=== PATIENT | female | born 2000 | race Caucasian/White ===

== ENCOUNTER 2019-12-08 15:55 | Emergency (ER) | payer OTHER, SELFPAY ==
[2019-12-08 16:41] VITALS: BP 119/80; PULSE 89; RESP 18; TEMP 36.6; O2SAT 98; BMI 27.0
--- NOTE | 2019-12-08 17:01 | XR_ITS ---
WS: [id number] XR cervical spine 3V* [id number] REASON FOR EXAM: neck pain FINDINGS: 3 views of the cervical spine shows normal appearance of the odontoid process. The disc spaces and vertebral bodies are all normal. The cervicothoracic junction was normal. No soft tissue abnormalities. XR/XR cervical spine 3V* [id number] IMPRESSION: Negative cervical spine series.
--- NOTE | 2019-12-08 17:01 | XR_ITS ---
WS: [id number] XR lumbar spine 2-3V* [id number] REASON FOR EXAM: pain FINDINGS: Lumbar spine 3 views. The disc spaces and vertebral bodies are all normal. No fractures or dislocations are seen. The lamina, pedicles, transverse processes, spinous processes are all normal. XR/XR lumbar spine 2-3V* [id number] IMPRESSION: Negative lumbar spine series.
--- NOTE | 2019-12-08 17:01 | XR_ITS ---
WS: [id number] XR thoracic spine 2V [id number] REASON FOR EXAM: pain FINDINGS: Thoracic spine was evaluated with 3 views. The cervicothoracic junction was normal. The disc spaces and vertebral bodies are normal. The lamina, pedicles, spinous processes are all normal. XR/XR thoracic spine 2V [id number] IMPRESSION: Negative thoracic spine series.
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
[2019-12-08 17:21] LABS: Basophils % 0.4 %; Eosinophils # 0.2 10^3/uL (0.0-0.8); Eosinophils % 1.8 %; Hematocrit 42.8 % (37.0-47.0); Hemoglobin 14.2 g/dL (11.5-15.3); Lymphocytes # 4.4 10^3/uL (1.5-6.5); Lymphocytes % 39.7 %; Mean Corpuscular HGB Conc 33.2 g/dL (30.0-36.0); Mean Corpuscular Hemoglobin 29.2 pg (28.0-34.0); Mean Corpuscular Volume 87.9 fL (81-99); Mean Platelet Volume 10.9 fL (7.4-10.4); Monocytes # 0.6 10^3/uL (0.2-0.9); Monocytes % 5.2 %; Neutrophils # 5.8 10^3/uL (1.8-8.0); Neutrophils % 52.7 %; Nucleated Red Blood Cells % 0 %; Platelet Count 314 10^3/cmm (130-400); Red Blood Count 4.87 10^6/uL (4.1-5.3); Red Cell Distribution Width 11.9 % (12.1-15.1); White Blood Count 11.1 10^3/uL (4.5-13.0)
[2019-12-08 17:34] LABS: Anion Gap 18.3 (5-19); Blood Urea Nitrogen 12 mg/dL (6-20); Calcium 9.4 mg/dL (8.5-10.5); Carbon Dioxide 23 mmol/L (22-29); Chloride 98 mmol/L (98-107); Glomerular Filtration Rate 128.8 mL/min (90-130); Glucose 84 mg/dL (65-115); Osmolality Calculated 277 mOsm/kg (285-295); Potassium 3.3 mmol/L (3.5-5.1); Sodium 136 mmol/L (136-145)
[2019-12-08 17:56] VITALS: BP 144/54; PULSE 88; RESP 17; O2SAT 98
[2019-12-08 18:24] VITALS: BP 126/68; PULSE 87; RESP 18; O2SAT 98
[2019-12-08 18:28] LABS: Add Urine Microscopic? NO
[2019-12-08 18:45] LABS: Bilirubin Urine Neg (NEGATIVE); Blood Urine Neg (Negative); Glucose Urine UA Norm (Normal); HCG Qualitative Urine. Negative (Negative); Ketones Urine 3+ (Negative); Leukocyte Esterase Urine Negative (Negative); Nitrate Urine Negative (Negative); Protein Urine Neg (Negative); Specific Gravity, Urine 1.025 (1.005-1.030); Urine Appearance Hazy (CLEAR); Urine Color Yellow (Yellow); Urobilinogen Urine 1 mg/dL (Negative); pH Urine 5 (5-7)
== END 2019-12-08 18:29 | disposition home or self-care (01) ==
PROVIDERS: Emergency Provider Family Medicine
DX: S09.8XXA Other specified injuries of head, initial encounter (principal); V86.65XA Passenger of 3- or 4- wheeled all-terrain vehicle (ATV) injured in nontraffic accident, initial encounter; M54.2 Cervicalgia; F17.210 Nicotine dependence, cigarettes, uncomplicated
CPT/HCPCS: 12345; 36415; 70450; 72040; 72070; 72100; 80048; 81003; 81025; 85025; 99282; 99283; A9270

== ENCOUNTER 2020-04-20 20:28 | Emergency (ER) | payer OTHER, SELFPAY ==
[2020-04-20 20:37] VITALS: BP 115/77; PULSE 85; RESP 16; TEMP 36.3; O2SAT 98; BMI 25.0
[2020-04-20 21:30] LABS: HCG Qualitative Urine. Negative (Negative)
[2020-04-20 21:38] LABS: Add Urine Microscopic? YES; Amorphous Sediment Urine 2+ /hpf; Bilirubin Urine Neg (Negative); Blood Urine Trace (Negative); Glucose Urine UA Norm (Normal); Ketones Urine 3+ (Negative); Leukocyte Esterase Urine Negative (Negative); Nitrate Urine Negative (Negative); Protein Urine Neg (Negative); RBC Urine RARE /hpf (0-2); Squamous Epithelial Cell Urine RARE /hpf (0-5); Urine Appearance Cloudy (CLEAR); Urine Color Yellow (Yellow); Urobilinogen Urine Norm (Negative); WBC Urine RARE /hpf (0-5); pH Urine 5 (5-7)
[2020-04-20 21:39] LABS: Bacteria Urine 2+ /hpf
--- NOTE | 2020-04-20 21:54 | CTR_ITS ---
PROCEDURE INFORMATION: Exam: CT Abdomen And Pelvis With Contrast Exam date and time: 04/20/2020 10:11 PM Age: 19 years old Clinical indication: Nausea and vomiting; Abdominal pain; Additional info: Abd pain TECHNIQUE: Imaging protocol: Computed tomography of the abdomen and pelvis with intravenous contrast. Radiation optimization: All CT scans at this facility use at least one of these dose optimization techniques: automated exposure control; mA and/or kV adjustment per patient size (includes targeted exams where dose is matched to clinical indication); or iterative reconstruction. Contrast material: OMNI 300; Contrast volume: 75 ml; Contrast route: INTRAVENOUS (IV); COMPARISON: US transvaginal [id number] 04/13/2019 10:40 AM RADIATION DOSE METRICS: Total DLP (mGy-cm): 424.44 FINDINGS: Liver: Normal. No mass. Gallbladder and bile ducts: Normal. No calcified stones. No ductal dilation. Pancreas: Normal. No ductal dilation. Spleen: Normal. No splenomegaly. Adrenals: Normal. No mass. Kidneys and ureters: Normal. No hydronephrosis. Stomach and bowel: There is some subtle haziness seen along the serosal margin of the ascending and transverse colon, findings that could represent mild inflammatory changes and colitis. Appendix: The appendix is visualized and is normal in configuration. Intraperitoneal space: Unremarkable. No free air. No significant fluid collection. Vasculature: Unremarkable. No abdominal aortic aneurysm. Lymph nodes: Unremarkable. No enlarged lymph nodes. Bladder: Unremarkable as visualized. Reproductive: Unremarkable as visualized. Bones/joints: Unremarkable. No acute fracture. Soft tissues: Unremarkable. CT/CT abdomen pelvis w con* [id number] IMPRESSION: Mild haziness seen along the ascending and transverse colon could represent mild colitis. Radiation Dose CTDIVOL = (mGy): DLP = 424.44 (mGy-cm)
--- NOTE | 2020-04-20 21:57 | ED_ITS ---
HPI - Abdominal Pain General: Chief Complaint: Abdominal Pain Stated Complaint: severe abd pain Time Seen by Provider: 04/20/20 21:53 Source: patient Mode of arrival: ambulatory Limitations: no limitations History of Present Illness: HPI narrative: 19-year-old female states she had abdominal pain since last night. States got much worse today. Is mainly in her right upper and right lower quadrant. Pain is sharp and rates it a 7 out of 10. She is had multiple episode of vomiting. Denies any fevers. MD elicited complaint: abdominal pain Pertinent past history: none Onset (ago): hour(s) Pain Consistency: constant Location: RUQ and RLQ Severity: moderate Quality: stabbing Migration to: no migration Exacerbating factors: nothing Relieving factors: nothing Associated Symptoms: Reports vomiting; Denies chills, diarrhea, dysuria, fever(s) and nausea Review of Systems Const: Denies: fever(s), chills, body aches or change in appetite Eyes: Denies: blurry vision or eye discomfort ENMT: Denies: throat pain or dental pain Card: Denies: chest pain Resp: Denies: dyspnea GI: Reports: abdominal pain and vomiting; Denies: nausea or diarrhea : Denies: dysuria Musc: Denies: neck pain or back pain Skin/Breast: Denies: rash Neuro: Denies: headache(s) Psych: Denies: depression Nate/Lymph: Denies: easy bruising All/Imm: Denies: urticaria PFSH ED PFSH: Surgical History (Updated 12/08/19 @ 17:23 by Hipolito Pabon DO) H/O neck surgery History of rhinoplasty Social History Smoking and tobacco status: current every day smoker Physical Exam Const: COMMON NORMALS: no acute distress, patient oriented x3 and healthy appearing HENMT: COMMON NORMALS: normocephalic and atraumatic HEAD & SCALP: normocephalic and atraumatic Eye: COMMON NORMALS: Equal, round and reactive pupils present and EOMs intact bilaterally PUPIL: Yes Equal, round and reactive pupils present Neck/C-Spine: COMMON NORMALS: full ROM and supple Chest: COMMONS NORMALS: normal inspection of the chest and normal palpation of entire chest wall Resp: COMMON NORMALS: normal respiratory effort, No retractions, No use of accessory muscles and clear to auscultation bilaterally AUSCULTATION: clear to auscultation bilaterally Cardio: COMMON NORMALS: regular rate, regular rhythm and No murmurs present (Cardio) RATE: regular rate RHYTHM: regular rhythm GI: COMMON NORMALS: Normal to inspection, nondistended, normoactive bowel sounds present, Soft to palpation and no masses PALPATION: Yes Soft to palpation and Yes Tenderness to palpation present (GI) Details: RLQ Extremity: COMMON NORMALS: normal to inspection and full ROM Neuro: COMMON NORMALS: patient oriented x3, moves all extremities and no focal motor deficits Psych: COMMON NORMALS: mental status grossly normal, Normal thought process pr esent and cooperative THOUGHT PROCESS: Normal thought process present Skin: COMMON NORMALS: no rashes or lesions noted and no wounds GENERAL SKIN EXAM: no rashes or lesions noted Course Vital Signs: Vital signs: Vital Signs Temperature 97.3 F L 04/20/20 20:37 Pulse Rate 86 04/20/20 23:49 Respiratory Rate 16 04/20/20 23:49 Blood Pressure 104/71 04/20/20 23:49 Pulse Oximetry 98 04/20/20 23:49 MDM - Abdominal Pain MDM Narrative: Medical decision making narrative: Patient presents here with abdominal pain likely from a colitis. We will start her on nausea meds and Augmentin. Her pain is improved here and she feels much improved. She is able to tolerate p.o. She is stable for discharge and return if worsening. Lab Data: Labs: Lab Results 04/20/20 04/20/20 04/20/20 Range/Units 20:50 20:50 21:50 WBC 19.9 H (4.5-13.0) 10^3/ uL RBC 4.82 (4.1-5.3) 10^6/u L Hgb 14.3 (11.5-15.3) g/dL Hct 43.9 (37.0-47.0) % MCV 91.1 (81-99) fL MCH 29.7 (28.0-34.0) pg MCHC 32.6 (30.0-36.0) g/dL RDW 11.9 L (12.1-15.1) % Plt Count 347 (130-400) 10^3/c mm MPV 10.8 H (7.4-10.4) fL Neut % (Auto) 87.5 % Lymph % (Auto) 6.3 % [place] % (Auto) 5.0 % Eos % (Auto) 0.4 % Baso % (Auto) 0.4 % Neut # (Auto) 17.44 H (1.8-8.0) 10^3/u L Lymph # (Auto) 1.3 L (1.5-6.5) 10^3/u L [place] # (Auto) 1.0 H (0.2-0.9) 10^3/u L Eos # (Auto) 0.1 (0.0-0.8) 10^3/u L Baso # (Auto) 0.1 (0.0-0.1) 10^3/u L Nucleated RBC % (a uto) 0 % Nucleated RBCs # 0.0 /100WBC Sodium (136-145) mmol/L Potassium (3.5-5.1) mmol/L Chloride (98-107) mmol/L Carbon Dioxide (22-29) mmol/L Anion Gap (5-19) BUN (6-20) mg/dL Creatinine (0.5-0.9) mg/dL GFR Calculation (90-130) mL/min Glucose (65-115) mg/dL Calculated Osmolal ity (285-295) mOsm/k g Calcium (8.5-10.5) mg/dL Total Bilirubin (0.15-1.2) mg/dL AST (0-32) U/L ALT (0-33) U/L Alkaline Phosphata se (35-105) IU/L Total Protein (6.6-8.7) g/dL Albumin (3.5-5.2) g/dL Globulin (1.3-4.6) g/dL Lipase (13-60) U/L HCG, Qual Negative (Negative) Urine Color Yellow (Yellow) Urine Appearance Cloudy (CLEAR) Urine pH 5 (5-7) Ur Specific Gravit y 1.030 (1.005-1.030) Urine Protein Neg (Negative) Urine Glucose (UA) Norm (Normal) Urine Ketones 3+ H (Negative) Urine Blood Trace H (Negative) Urine Nitrate Negative (Negative) Urine Bilirubin Neg (Negative) Urine Urobilinogen Norm (Negative) mg/dL Ur Leukocyte Di ase Negative (Negative) Urine RBC Rare (0-2) /hpf Urine WBC Rare (0-5) /hpf Ur Squamous Epith Cells Rare (0-5) /hpf Ur Renal Epithelia l Cell Knitting Machine Fixer Head Amorphous Sediment 2+ /hpf Urine Bacteria 2+ H (NONE) /hpf 04/20/20 Range/Units 21:50 WBC (4.5-13.0) 10^3/ uL RBC (4.1-5.3) 10^6/u L Hgb (11.5-15.3) g/dL Hct (37.0-47.0) % MCV (81-99) fL MCH (28.0-34.0) pg MCHC (30.0-36.0) g/dL RDW (12.1-15.1) % Plt Count (130-400) 10^3/c mm MPV (7.4-10.4) fL Neut % (Auto) % Lymph % (Auto) % [place] % (Auto) % Eos % (Auto) % Baso % (Auto) % Neut # (Auto) (1.8-8.0) 10^3/u L Lymph # (Auto) (1.5-6.5) 10^3/u L [place] # (Auto) (0.2-0.9) 10^3/u L Eos # (Auto) (0.0-0.8) 10^3/u L Baso # (Auto) (0.0-0.1) 10^3/u L Nucleated RBC % (a uto) % Nucleated RBCs # /100WBC Sodium 134 L (136-145) mmol/L Potassium 4.4 (3.5-5.1) mmol/L Chloride 97 L (98-107) mmol/L Carbon Dioxide 25 (22-29) mmol/L Anion Gap 16.4 (5-19) BUN 10 (6-20) mg/dL Creatinine 0.5 (0.5-0.9) mg/dL GFR Calculation 157.3 H (90-130) mL/min Glucose 143 H (65-115) mg/dL Calculated Osmolal ity 280 L (285-295) mOsm/k g Calcium 9.3 (8.5-10.5) mg/dL Total Bilirubin 0.3 (0.15-1.2) mg/dL AST 23 (0-32) U/L ALT 35 H (0-33) U/L Alkaline Phosphata se 96 (35-105) IU/L Total Protein 8.2 (6.6-8.7) g/dL Albumin 4.9 (3.5-5.2) g/dL Globulin 3.3 (1.3-4.6) g/dL Lipase 19 (13-60) U/L HCG, Qual (Negative) Urine Color (Yellow) Urine Appearance (CLEAR) Urine pH (5-7) Ur Specific Gravit y (1.005-1.030) Urine Protein (Negative) Urine Glucose (UA) (Normal) Urine Ketones (Negative) Urine Blood (Negative) Urine Nitrate (Negative) Urine Bilirubin (Negative) Urine Urobilinogen (Negative) mg/dL Ur Leukocyte Di ase (Negative) Urine RBC (0-2) /hpf Urine WBC (0-5) /hpf Ur Squamous Epith Cells (0-5) /hpf Ur Renal Epithelia l Cell Amorphous Sediment /hpf Urine Bacteria (NONE) /hpf Imaging Data ^: CT Abd/Pel: Attestation: I personally reviewed and interpreted this imaging study as follows: Radiologist's impression: [place] [address] CT Scan Report Signed Patient: Trice Ball Unit #: [id number] : 2000 Age/Sex: 19 / F ADM Date: 04/20/20 Loc: ER Room/Bed: Attending Dr: Ordering Provider/Ordering MD: Drake Araya MD Date of Service: 04/20/20 Procedure(s): CT abdomen pelvis w con* [id number] Accession Number(s): [id number] Report Number: [id number] PROCEDURE INFORMATION: Exam: CT Abdomen And Pelvis With Contrast Exam date and time: 04/20/2020 10:11 PM Age: 19 years old Clinical indication: Nausea and vomiting; Abdominal pain; Additional info: Abd pain TECHNIQUE: Imaging protocol: Computed tomography of the abdomen and pelvis with intravenous contrast. Radiation optimization: All CT scans at this facility use at least one of these dose optimization techniques: automated exposure control; mA and/or kV adjustment per patient size (includes targeted exams where dose is matched to clinical indication); or iterative reconstruction. Contrast material: OMNI 300; Contrast volume: 75 ml; Contrast route: INTRAVENOUS (IV); COMPARISON: US transvaginal [id number] 04/13/2019 10:40 AM RADIATION DOSE METRICS: Total DLP (mGy-cm): 424.44 FINDINGS: Liver: Normal. No mass. Gallbladder and bile ducts: Normal. No calcified stones. No ductal dilation. Pancreas: Normal. No ductal dilation. Spleen: Normal. No splenomegaly. Adrenals: Normal. No mass. Kidneys and ureters: Normal. No hydronephrosis. Stomach and bowel: There is some subtle haziness seen along the serosal margin of the ascending and transverse colon, findings that could represent mild inflammatory changes and colitis. Appendix: The appendix is visualized and is normal in configuration. Intraperitoneal space: Unremarkable. No free air. No significant fluid collection. Vasculature: Unremarkable. No abdominal aortic aneurysm. Lymph nodes: Unremarkable. No enlarged lymph nodes. Bladder: Unremarkable as visualized. Reproductive: Unremarkable as visualized. Bones/joints: Unremarkable. No acute fracture. Soft tissues: Unremarkable. CT/CT abdomen pelvis w con* [id number] IMPRESSION: Mild haziness seen along the ascending and transverse colon could represent mild colitis. Discharge Plan Discharge Patient Disposition: Home Clinical Impression: Colitis Condition: Stable Prescriptions: New ondansetron 4 mg tablet,disintegrating 4 mg PO Q6H PRN (Reason: nausea and vomiting) Qty: 14 RF: 0 Augmentin 875-125 mg tablet 1 tab PO BID Qty: 14 RF: 0 No Action diclofenac sodium 75 mg tablet,delayed release (DR/EC) 75 mg PO Q12H PRN (Reason: pain) Qty: 20 RF: 0 Discharge Orders: Discharge Order (Routine); Ordered 04/20/20 Ordered By: Drake Araya Discharge Diet: Advance as tolerated Discharge Activity: Resume usual activity Patient Instructions: Infectious Colitis (ED) Discharge Date/Time: 04/20/20 23:51 Coding Level of Care Code ED Medical Appointment Scheduler for Chg Fwd Exam Comprehensive
[2020-04-20 22:09] LABS: Basophils # 0.1 10^3/uL (0.0-0.1); Basophils % 0.4 %; Eosinophils # 0.1 10^3/uL (0.0-0.8); Eosinophils % 0.4 %; Hematocrit 43.9 % (37.0-47.0); Hemoglobin 14.3 g/dL (11.5-15.3); Lymphocytes # 1.3 10^3/uL (1.5-6.5); Lymphocytes % 6.3 %; Mean Corpuscular HGB Conc 32.6 g/dL (30.0-36.0); Mean Corpuscular Hemoglobin 29.7 pg (28.0-34.0); Mean Corpuscular Volume 91.1 fL (81-99); Mean Platelet Volume 10.8 fL (7.4-10.4); Neutrophils # 17.44 10^3/uL (1.8-8.0); Neutrophils % 87.5 %; Nucleated Red Blood Cells % 0 %; Platelet Count 347 10^3/cmm (130-400); Red Blood Count 4.82 10^6/uL (4.1-5.3); Red Cell Distribution Width 11.9 % (12.1-15.1); White Blood Count 19.9 10^3/uL (4.5-13.0)
--- NOTE | 2020-04-20 22:11 | US_ITS ---
WS: [id number] RIGHT UPPER QUADRANT ULTRASOUND HISTORY: pain COMPARISON: None available. Liver: 11.8 cm in length. Normal size liver. No bile duct dilatation or mass. Gallbladder: Normally distended gallbladder with no stones or wall thickening. CBD: 0.3 cm Pancreas: Normal size and echogenicity. Right kidney: 9.4 cm in length. Normal size and echogenicity. No hydronephrosis or mass. Aorta and IVC: Unremarkable abdominal aorta and IVC. No ascites. US/US gall bladder [id number] IMPRESSION: Normal RIGHT upper quadrant ultrasound.
[2020-04-20 22:13] VITALS: O2SAT 98
[2020-04-20 22:20] LABS: Alanine Aminotransferase 35 U/L (0-33); Albumin Level 4.9 g/dL (3.5-5.2); Alkaline Phosphatase 96 IU/L (35-105); Anion Gap 16.4 (5-19); Aspartate Amino Transferase 23 U/L (0-32); Blood Urea Nitrogen 10 mg/dL (6-20); Calcium 9.3 mg/dL (8.5-10.5); Carbon Dioxide 25 mmol/L (22-29); Chloride 97 mmol/L (98-107); Globulin 3.3 g/dL (1.3-4.6); Glomerular Filtration Rate 157.3 mL/min (90-130); Glucose 143 mg/dL (65-115); Lipase 19 U/L (13-60); Osmolality Calculated 280 mOsm/kg (285-295); Potassium 4.4 mmol/L (3.5-5.1); Sodium 134 mmol/L (136-145); Total Bilirubin 0.3 mg/dL (0.15-1.2); Total Protein 8.2 g/dL (6.6-8.7)
[2020-04-20] MEDS: sodium chloride 0.9% 1,000 ML 999 ML IV ×2 (22:27→23:39)
[2020-04-20] MEDS: ondansetron 2 mg/ML SDV 2 mL 4 MG IVP (22:28)
[2020-04-20 22:29] VITALS: BP 110/64; PULSE 82; RESP 18; O2SAT 98
[2020-04-20] MEDS: morphine 4 mg/mL SDV 1 mL IVP ×2 (22:29→23:38)
[2020-04-20] MEDS: iohexol 300 mg/mL 100 mL Btl IV (22:40)
[2020-04-20] MEDS: acetaminophen 325 mg Tablet 650 MG PO (23:30)
[2020-04-20 23:38] VITALS: RESP 18; O2SAT 98
[2020-04-20 23:49] VITALS: BP 104/71; PULSE 86; RESP 16; O2SAT 98
== END 2020-04-20 23:51 | disposition home or self-care (01) ==
PROVIDERS: Emergency Provider Emergency Medicine
DX: K52.9 Noninfective gastroenteritis and colitis, unspecified (principal); F17.210 Nicotine dependence, cigarettes, uncomplicated
CPT/HCPCS: 12345; 36415; 74177; 76705; 80053; 81001; 81025; 83690; 85025; 96375; 99283; J2270; J2405; J7030; Q9967

== ENCOUNTER 2020-09-03 18:55 | Emergency (ER) | payer OTHER, SELFPAY ==
[2020-09-03 20:04] VITALS: BP 130/91; PULSE 64; RESP 12; TEMP 36.8; O2SAT 98; BMI 27.1
--- NOTE | 2020-09-03 22:06 | W.ED.ABDPA2 ---
HPI - Abdominal Pain General: Chief Complaint: Abdominal Pain Stated Complaint: possible colon infection Time Seen by Provider: 09/03/20 21:52 History of Present Illness: HPI narrative: Patient was doing fine until this morning when she started having some nausea and vomiting. Slight abdominal pain. She said is consistent with colitis attack that she had 2 months ago. Denies any other problem MD elicited complaint: abdominal pain Pertinent past history: other (Colitis 2 months ago) Onset (ago): hour(s) Pain Consistency: intermittent Location: RLQ and LLQ Severity: mild Quality: cramping Radiation: none Associated Symptoms: Reports nausea and vomiting; Denies chills and fever(s) Review of Systems Const: Denies: fever(s), chills or body aches Eyes: Denies: change in vision or blurry vision ENMT: Denies: throat pain or nasal congestion Card: Denies: chest pain or dyspnea on exertion Resp: Denies: dyspnea, productive cough or non-productive cough GI: Reports: nausea and vomiting Musc: Denies: extremity pain Skin/Breast: Denies: rash Neuro: Denies: headache(s) Psych: Denies: anxiety or depression Nate/Lymph: Denies: easy bruising PFSH ED PFSH: Surgical History (Updated 12/08/19 @ 17:23 by Hipolito Pabon DO) H/O neck surgery History of rhinoplasty Social History Smoking and tobacco status: current every day smoker Physical Exam Const: COMMON NORMALS: no acute distress, average body habitus and patient oriented x3 HENMT: COMMON NORMALS: normocephalic HEAD & SCALP: normal to inspection and normocephalic FACE & SINUS: normal facial exam Eye: COMMON NORMALS: conjunctivae normal GENERAL EYE: appearance normal, both eyes and all related structures CONJUNCTIVA: Yes conjunctivae normal Neck/C-Spine: COMMON NORMALS: no JVD Chest: COMMONS NORMALS: normal inspection of the chest Resp: COMMON NORMALS: normal respiratory effort and clear to auscultation bilaterally AUSCULTATION: clear to auscultation bilaterally Cardio: COMMON NORMALS: no JVD, regular rate and regular rhythm RATE: regular rate RHYTHM: regular rhythm GI: COMMON NORMALS: Normal to inspection, nondistended, normoactive bowel sounds present PALPATION: Yes Tenderness to palpation present (GI) Details: LLQ and RLQ Extremity: COMMON NORMALS: normal to inspection and full ROM Neuro: COMMON NORMALS: patient oriented x3 Course Vital Signs: Vital signs: Vital Signs Temperature 98.2 F 09/03/20 20:04 Pulse Rate 78 09/03/20 23:34 Respiratory Rate 16 09/03/20 23:34 Blood Pressure 107/87 09/03/20 23:34 Pulse Oximetry 99 09/03/20 23:34 MDM - Abdominal Pain MDM Narrative: Medical decision making narrative: Patient with a recent 2-month history post colitis with similar symptoms today. Responded well to fluids antibiotics will follow up with her family medical provider if no significant improvement Differential Diagnosis: Differential diagnosis abdominal pain: Likely abdominal pain, constipation, diverticulitis and gastroenteritis Lab Data: Labs: Lab Results 09/03/20 09/03/20 09/03/20 Range/Units 20:55 22:05 22:05 WBC 16.0 H (4.5-13.0) 10^3/ uL RBC 4.89 (4.1-5.3) 10^6/u L Hgb 14.4 (11.5-15.3) g/dL Hct 44.3 (37.0-47.0) % MCV 90.6 (81-99) fL MCH 29.4 (28.0-34.0) pg MCHC 32.5 (30.0-36.0) g/dL RDW 12.0 L (12.1-15.1) % Plt Count 350 (130-400) 10^3/c mm MPV 10.9 H (7.4-10.4) fL Neut % (Auto) 74.5 % Lymph % (Auto) 20.0 % [place] % (Auto) 3.2 % Eos % (Auto) 1.6 % Baso % (Auto) 0.3 % Neut # (Auto) 11.92 H (1.8-8.0) 10^3/u L Lymph # (Auto) 3.2 (1.5-6.5) 10^3/u L [place] # (Auto) 0.5 (0.2-0.9) 10^3/u L Eos # (Auto) 0.3 (0.0-0.8) 10^3/u L Baso # (Auto) 0.1 (0.0-0.1) 10^3/u L Nucleated RBC % (a uto) 0 % Nucleated RBCs # 0.0 /100WBC Sodium 138 (136-145) mmol/L Potassium 3.8 (3.5-5.1) mmol/L Chloride 103 (98-107) mmol/L Carbon Dioxide 25 (22-29) mmol/L Anion Gap 13.8 (5-19) BUN 11 (6-20) mg/dL Creatinine 0.7 (0.5-0.9) mg/dL GFR Calculation 106.7 (90-130) mL/min Glucose 95 (65-115) mg/dL Calculated Osmolal ity 285 (285-295) mOsm/k g Calcium 9.0 (8.5-10.5) mg/dL Total Bilirubin 0.3 (0.15-1.2) mg/dL AST 19 (0-32) U/L ALT 22 (0-33) U/L Alkaline Phosphata se 90 (35-105) IU/L C-Reactive Protein 2.2 (0.0-4.9) mg/L Total Protein 7.5 (6.6-8.7) g/dL Albumin 4.5 (3.5-5.2) g/dL Globulin 3.0 (1.3-4.6) g/dL Lipase 13 (13-60) U/L HCG, Qual (Negative) Urine Color Yellow (Yellow) Urine Appearance Clear (CLEAR) Urine pH 5 (5-7) Ur Specific Gravit y 1.015 (1.005-1.030) Urine Protein Neg (Negative) Urine Glucose (UA) Norm (Normal) Urine Ketones Negative (Negative) Urine Blood 3+ H (Negative) Urine Nitrate Negative (Negative) Urine Bilirubin Neg (Negative) Urine Urobilinogen Norm (Negative) mg/dL Ur Leukocyte Di ase Negative (Negative) Urine RBC 5-10 H (0-2) /hpf Urine WBC 0-4 H (0-5) /hpf Ur Squamous Epith Cells 15-25 H (0-5) /hpf Amorphous Sediment Not Reportable Urine Bacteria Trace (NONE) /hpf 09/03/20 Range/Units 22:05 WBC (4.5-13.0) 10^3/ uL RBC (4.1-5.3) 10^6/u L Hgb (11.5-15.3) g/dL Hct (37.0-47.0) % MCV (81-99) fL MCH (28.0-34.0) pg MCHC (30.0-36.0) g/dL RDW (12.1-15.1) % Plt Count (130-400) 10^3/c mm MPV (7.4-10.4) fL Neut % (Auto) % Lymph % (Auto) % [place] % (Auto) % Eos % (Auto) % Baso % (Auto) % Neut # (Auto) (1.8-8.0) 10^3/u L Lymph # (Auto) (1.5-6.5) 10^3/u L [place] # (Auto) (0.2-0.9) 10^3/u L Eos # (Auto) (0.0-0.8) 10^3/u L Baso # (Auto) (0.0-0.1) 10^3/u L Nucleated RBC % (a uto) % Nucleated RBCs # /100WBC Sodium (136-145) mmol/L Potassium (3.5-5.1) mmol/L Chloride (98-107) mmol/L Carbon Dioxide (22-29) mmol/L Anion Gap (5-19) BUN (6-20) mg/dL Creatinine (0.5-0.9) mg/dL GFR Calculation (90-130) mL/min Glucose (65-115) mg/dL Calculated Osmolal ity (285-295) mOsm/k g Calcium (8.5-10.5) mg/dL Total Bilirubin (0.15-1.2) mg/dL AST (0-32) U/L ALT (0-33) U/L Alkaline Phosphata se (35-105) IU/L C-Reactive Protein (0.0-4.9) mg/L Total Protein (6.6-8.7) g/dL Albumin (3.5-5.2) g/dL Globulin (1.3-4.6) g/dL Lipase (13-60) U/L HCG, Qual Negative (Negative) Urine Color (Yellow) Urine Appearance (CLEAR) Urine pH (5-7) Ur Specific Gravit y (1.005-1.030) Urine Protein (Negative) Urine Glucose (UA) (Normal) Urine Ketones (Negative) Urine Blood (Negative) Urine Nitrate (Negative) Urine Bilirubin (Negative) Urine Urobilinogen (Negative) mg/dL Ur Leukocyte Di ase (Negative) Urine RBC (0-2) /hpf Urine WBC (0-5) /hpf Ur Squamous Epith Cells (0-5) /hpf Amorphous Sediment Urine Bacteria (NONE) /hpf Discharge Plan Discharge Patient Disposition: Home Clinical Impression: Colitis Condition: Stable Prescriptions: New Flagyl 500 mg tablet 500 mg PO BID 7 Days Qty: 14 RF: 0 Cipro 500 mg tablet 500 mg PO BID Qty: 14 RF: 0 Zofran 4 mg tablet 4 mg PO Q8H 3 Days Qty: 9 RF: 0 No Action diclofenac sodium 75 mg tablet,delayed release (DR/EC) 75 mg PO Q12H PRN (Reason: pain) Qty: 20 RF: 0 ondansetron 4 mg tablet,disintegrating 4 mg PO Q6H PRN (Reason: nausea and vomiting) Qty: 14 RF: 0 Augmentin 875-125 mg tablet 1 tab PO BID Qty: 14 RF: 0 Discharge Orders: Discharge ED (Routine); Ordered 09/03/20 Ordered By: Nate Contreras Discharge Diet: Usual diet Discharge Activity: Increase activity as tolerated Activity Restrictions/Additional Instructions: Follow-up with medical provider as directed. Take medications as prescribed. Return to the ER or your medical provider if condition worsens. Please read and understand discharge instructions. If any questions ask please. Coding Level of Care Code ED Choke Reamer for Dipika Fwd Exam Comprehensive
[2020-09-03] MEDS: ciprofloxacin 500 mg Tablet PO (22:25)
[2020-09-03] MEDS: sodium chloride 0.9% 1,000 ML 999 ML IV (22:30)
[2020-09-03] MEDS: ondansetron 2 mg/ML SDV 2 mL 4 MG IVP (22:35)
[2020-09-03] MEDS: ketorolac 30 mg/mL INJ 15 MG IVP (22:40)
[2020-09-03 22:43] LABS: Basophils # 0.1 10^3/uL (0.0-0.1); Basophils % 0.3 %; Eosinophils # 0.3 10^3/uL (0.0-0.8); Eosinophils % 1.6 %; Hematocrit 44.3 % (37.0-47.0); Hemoglobin 14.4 g/dL (11.5-15.3); Lymphocytes # 3.2 10^3/uL (1.5-6.5); Mean Corpuscular HGB Conc 32.5 g/dL (30.0-36.0); Mean Corpuscular Hemoglobin 29.4 pg (28.0-34.0); Mean Corpuscular Volume 90.6 fL (81-99); Mean Platelet Volume 10.9 fL (7.4-10.4); Monocytes # 0.5 10^3/uL (0.2-0.9); Monocytes % 3.2 %; Neutrophils # 11.92 10^3/uL (1.8-8.0); Neutrophils % 74.5 %; Nucleated Red Blood Cells % 0 %; Platelet Count 350 10^3/cmm (130-400); Red Blood Count 4.89 10^6/uL (4.1-5.3)
[2020-09-03 22:56] LABS: Urine Appearance Clear (CLEAR); Urine Color Yellow (Yellow); pH Urine 5 (5-7)
[2020-09-03 22:57] LABS: Add Urine Microscopic? YES; Bilirubin Urine Neg (Negative); Blood Urine 3+ (Negative); Glucose Urine UA Norm (Normal); Ketones Urine Negative (Negative); Leukocyte Esterase Urine Negative (Negative); Nitrate Urine Negative (Negative); Protein Urine Neg (Negative); Specific Gravity, Urine 1.015 (1.005-1.030); Urobilinogen Urine Norm (Negative)
[2020-09-03 22:59] LABS: Add Urine Culture? No; Bacteria Urine TRACE /hpf; Squamous Epithelial Cell Urine 15-25 /hpf (0-5); WBC Urine 0-4 /hpf (0-5)
[2020-09-03 22:59] LABS: HCG, Serum Qual Negative (Negative)
[2020-09-03 23:06] LABS: Alanine Aminotransferase 22 U/L (0-33); Albumin Level 4.5 g/dL (3.5-5.2); Alkaline Phosphatase 90 IU/L (35-105); Anion Gap 13.8 (5-19); Aspartate Amino Transferase 19 U/L (0-32); Blood Urea Nitrogen 11 mg/dL (6-20); C Reactive Protein 2.2 mg/L (0.0-4.9); Carbon Dioxide 25 mmol/L (22-29); Chloride 103 mmol/L (98-107); Glomerular Filtration Rate 106.7 mL/min (90-130); Glucose 95 mg/dL (65-115); Lipase 13 U/L (13-60); Osmolality Calculated 285 mOsm/kg (285-295); Potassium 3.8 mmol/L (3.5-5.1); Sodium 138 mmol/L (136-145); Total Bilirubin 0.3 mg/dL (0.15-1.2); Total Protein 7.5 g/dL (6.6-8.7)
[2020-09-03] MEDS: metroNIDAZOLE 500 MG Tablet PO (23:15)
[2020-09-03 23:34] VITALS: BP 107/87; PULSE 78; RESP 16; O2SAT 99
== END 2020-09-03 23:37 | disposition home or self-care (01) ==
PROVIDERS: Emergency Medicine; Emergency Provider Nurse Practitioner Family
DX: K52.9 Noninfective gastroenteritis and colitis, unspecified (principal); F17.210 Nicotine dependence, cigarettes, uncomplicated
CPT/HCPCS: 12345; 80053; 81001; 83690; 84703; 85025; 86140; 96361; 96374; 96375; 99282; 99283; J1885; J2405; J7030

== ENCOUNTER 2020-09-06 14:56 | Inpatient (IN) | payer OTHER, SELFPAY ==
[2020-09-06 14:58] VITALS: BP 109/78; PULSE 67; RESP 16; TEMP 37.1; O2SAT 99; BMI 27.1
[2020-09-06 15:02] VITALS: BP 128/87; PULSE 68; RESP 18; O2SAT 98
--- NOTE | 2020-09-06 15:13 | CT_ITS ---
WS: [id number] CT scan of the abdomen and pelvis with IV contrast. Additional two-dimensional coronal and sagittal r econstruction was performed. 09/06/2020 Clinical Data: lower abdominal pain, vomiting, diarrhea Comparison: CT abdomen and pelvis, 04/20/2020. DLP: 434.[address] scans at [facility] use at least one of these dose optimization techniques: automat ed exposure control; mA and/or kV adjustment per patient size (includes targeted exams where dose is matched to clinical indication); or iterative reconstruction. Findings: The lower lungs show no nodules, masses or effusions. The liver, gallbladder, spleen, adrenal glands and pancreas are normal. The kidneys show equal bilateral contrast excretion with no cyst or masses. The abdominal aorta is normal in size. No appendicitis or diverticulitis is seen. The stomach, small bowel and colon are unremarkable. No ab scess, adenopathy, ascites, mass, obstruction or free air is seen. The bladder is unremarkable. The uterus is normal. No inguinal hernia is seen. The bones of the lower thorax, lumbar spine, pelvis, and hips are normal. CT/CT abdomen pelvis w con* [id number] Impression: Negative CT scan of the abdomen and pelvis.
--- NOTE | 2020-09-06 15:15 | W.ED.ABDPA2 ---
HPI - Abdominal Pain General: Chief Complaint: Abdominal Pain Stated Complaint: N/V, STATES FEELS LIKE COLITIS IS WORSE Time Seen by Provider: 09/06/20 15:04 Source: patient Mode of arrival: ambulatory Limitations: no limitations History of Present Illness: HPI narrative: 19-year-old female patient who presents to the emergency department with complaints of nausea vomiting and feels like her colitis is worse. She claims she has a history of colitis but cannot tell me exactly what it is. She was seen here about 3 days ago and discharged home on oral antibiotics. The patient states she is unable to keep anything down and continues to vomit and have some diarrhea. She has lower abdominal pain also. She denies any fever. MD elicited complaint: abdominal pain Onset (ago): day(s) (3) Pain Consistency: constant Location: RLQ and Suprapubic Severity: severe Quality: cramping Exacerbating factors: nothing Relieving factors: nothing Associated Symptoms: Reports anorexia, change in bowel habits, GI cramping and diarrhea; Denies belching, bloating, change in stool character, chills, coffee ground emesis, constipation, dyspepsia, dysuria, excessive flatus, fever(s), heartburn, hematochezia, hematuria, hematemesis, fecal incontinence, loose stools, melena, nausea, poor appetite and syncope Review of Systems General: Reports: 10 or more systems reviewed and unremarkable except in HPI and below Const: Denies: fever(s) or chills Eyes: Denies: change in vision or blurry vision ENMT: Denies: throat pain, enlarged tonsils, odynophagia, hoarseness, mouth pain or swelling of lips/tongue Card: Denies: syncope Resp: Denies: dyspnea, productive cough or non-productive cough GI: Reports: diarrhea, GI cramping and change in bowel habits; Denies: nausea, hematemesis, coffee ground emesis, heartburn, constipation, bloating, belching, excessive flatus, fecal incontinence, change in stool character, hematochezia or melena : Denies: dysuria or hematuria Musc: Denies: neck pain, back pain or extremity swelling Skin/Breast: Denies: rash, pruritus or erythema Neuro: Denies: headache(s), numbness in extremities or weakness in extremities Endo: Denies: polyuria, polydipsia or tired all the time [facility] ED PFSH: Medical History Colitis Surgical History H/O neck surgery History of rhinoplasty Family History Other No significant family history Social History Smoking and tobacco status: current every day smoker cigarettes Packs smoked per day: 0.5 Alcohol intake: never Substance/Drug Use: never Lives independently: Yes Household members: significant other Marital status: Single Current occupational status: employed Physical Exam Const: COMMON NORMALS: no acute distress, average body habitus, patient oriented x3, no limitations, healthy appearing, alert and well nourished HENMT: COMMON NORMALS: normocephalic, atraumatic and moist oral mucous membranes HEAD & SCALP: normocephalic and atraumatic Neck/C-Spine: COMMON NORMALS: no meningeal signs and no JVD Resp: COMMON NORMALS: normal respiratory effort, No retractions, No use of accessory muscles, clear to auscultation bilaterally and percussion normal AUSCULTATION: clear to auscultation bilaterally PERCUSSION: percussion normal Cardio: COMMON NORMALS: no JVD, regular rate, regular rhythm, S1 normal heart sound present, S2 normal heart sound present, No gallops present (Cardio), No clicks present (Cardio), No murmurs present (Cardio), No rub (Cardio) and Peripheral pulses 2+ throughout RATE: regular rate RHYTHM: regular rhythm HEART SOUNDS: S1 normal heart sound present and S2 normal heart sound present PERIPHERAL PULSES: Peripheral pulses 2+ throughout GI: COMMON NORMALS: Normal to inspection, nondistended, normoactive bowel sounds present, Soft to palpation, No hepatosplenomegaly present, no masses and no bruits PALPATION: Yes Soft to palpation, Yes Tenderness to palpation present (GI) (Suprapubic tenderness) Details: RLQ, No Guarding due to palpation present (GI), No Rigid due to palpation and Yes No hepatosplenomegaly present Extremity: COMMON NORMALS: normal to inspection, full ROM, capillary refill normal, no calf tenderness and no pedal edema Neuro: COMMON NORMALS: patient oriented x3 SENSORIUM/ORIENTATION: Yes alert MENINGEAL SIGNS: Yes no meningeal signs Course Reevaluation(s): Reevaluation #1: Discussed her lab and imaging findings with her. CT scan findings are unremarkable. She blood work however shows that she she is in acute renal failure which may be secondary to the severe vomiting and dehydration or may be from the NSAIDs that she has been taking. Regardless she has had her creatinine more than double in 3 days and she will need to be evaluated for these. She is therefore going to be admitted, she voiced understanding and is in agreement with the plan. Time: 17:00 Consultations: Consultation #1: Discussed the patient with Dr. Bethea, hospitalist. He kindly accepted the patient to his service. Time: 17:06 Vital Signs: Vital signs: Vital Signs Temperature 98.6 F 09/06/20 21:24 Pulse Rate 62 09/06/20 21:24 Respiratory Rate 18 09/06/20 21:24 Blood Pressure 109/76 09/06/20 21:24 Pulse Oximetry 98 09/06/20 21:24 MDM - Abdominal Pain MDM Narrative: Medical decision making narrative: 19-year-old female patient who presents with nausea vomiting and diarrhea which he attributed to colitis. Evaluation in the emergency department shows she has mild leukocytosis, acute renal failure which is concerning given her age and the rapidity of the rise of the renal failure, but CT scan findings do not support colitis small other acute intra-abdominal disease. She is admitted to the hospital for IV fluids, antiemetics and further evaluation. Medical Records: Attestation: I reviewed the patient's medical records. Lab Data: Attestation: I reviewed the patient's lab results. Labs: Lab Results 09/06/20 09/06/20 09/06/20 Range/Units 15:18 15:18 15:18 WBC 16.0 H (4.5-13.0) 10^3/ uL RBC 4.90 (4.1-5.3) 10^6/u L Hgb 14.7 (11.5-15.3) g/dL Hct 42.7 (37.0-47.0) % MCV 87.1 (81-99) fL MCH 30.0 (28.0-34.0) pg MCHC 34.4 (30.0-36.0) g/dL RDW 11.8 L (12.1-15.1) % Plt Count 338 (130-400) 10^3/c mm MPV 10.4 (7.4-10.4) fL Neut % (Auto) 85.4 % Lymph % (Auto) 10.7 % [place] % (Auto) 3.4 % Eos % (Auto) 0.1 % Baso % (Auto) 0.1 % Neut # (Auto) 13.66 H (1.8-8.0) 10^3/u L Lymph # (Auto) 1.7 (1.5-6.5) 10^3/u L [place] # (Auto) 0.5 (0.2-0.9) 10^3/u L Eos # (Auto) 0.0 (0.0-0.8) 10^3/u L Baso # (Auto) 0.0 (0.0-0.1) 10^3/u L Nucleated RBC % (a uto) 0 % Nucleated RBCs # 0.0 /100WBC ESR (0-15) mm/hr Sodium 137 (136-145) mmol/L Potassium 3.8 (3.5-5.1) mmol/L Chloride 102 (98-107) mmol/L Carbon Dioxide 21 L (22-29) mmol/L Anion Gap 17.8 (5-19) BUN 20 (6-20) mg/dL Creatinine 1.7 H (0.5-0.9) mg/dL GFR Calculation 38.3 L (90-130) mL/min Glucose 100 (65-115) mg/dL Calculated Osmolal ity 287 (285-295) mOsm/k g Lactate 1.4 (0.5-2.2) mmol/L Calcium 9.9 (8.5-10.5) mg/dL Total Bilirubin 0.5 (0.15-1.2) mg/dL AST 19 (0-32) U/L ALT 17 (0-33) U/L Alkaline Phosphata se 90 (35-105) IU/L C-Reactive Protein 5.3 H (0.0-4.9) mg/L Total Protein 8.1 (6.6-8.7) g/dL Albumin 4.8 (3.5-5.2) g/dL Globulin 3.3 (1.3-4.6) g/dL Lipase 12 L (13-60) U/L HCG, Qual (Negative) Urine Color (Yellow) Urine Appearance (CLEAR) Urine pH (5-7) Ur Specific Gravit y (1.005-1.030) Urine Protein (Negative) Urine Glucose (UA) (Normal) Urine Ketones (Negative) Urine Blood (Negative) Urine Nitrate (Negative) Urine Bilirubin (Negative) Urine Urobilinogen (Negative) mg/dL Ur Leukocyte Di ase (Negative) Urine RBC (0-2) /hpf Urine WBC (0-5) /hpf Ur Squamous Epith Cells (0-5) /hpf Amorphous Sediment Urine Bacteria (NONE) /hpf 09/06/20 09/06/20 09/06/20 Range/Units 15:18 15:18 15:18 WBC (4.5-13.0) 10^3/ uL RBC (4.1-5.3) 10^6/u L Hgb (11.5-15.3) g/dL Hct (37.0-47.0) % MCV (81-99) fL MCH (28.0-34.0) pg MCHC (30.0-36.0) g/dL RDW (12.1-15.1) % Plt Count (130-400) 10^3/c mm MPV (7.4-10.4) fL Neut % (Auto) % Lymph % (Auto) % [place] % (Auto) % Eos % (Auto) % Baso % (Auto) % Neut # (Auto) (1.8-8.0) 10^3/u L Lymph # (Auto) (1.5-6.5) 10^3/u L [place] # (Auto) (0.2-0.9) 10^3/u L Eos # (Auto) (0.0-0.8) 10^3/u L Baso # (Auto) (0.0-0.1) 10^3/u L Nucleated RBC % (a uto) % Nucleated RBCs # /100WBC ESR 9 (0-15) mm/hr Sodium (136-145) mmol/L Potassium (3.5-5.1) mmol/L Chloride (98-107) mmol/L Carbon Dioxide (22-29) mmol/L Anion Gap (5-19) BUN (6-20) mg/dL Creatinine (0.5-0.9) mg/dL GFR Calculation (90-130) mL/min Glucose (65-115) mg/dL Calculated Osmolal ity (285-295) mOsm/k g Lactate (0.5-2.2) mmol/L Calcium (8.5-10.5) mg/dL Total Bilirubin (0.15-1.2) mg/dL AST (0-32) U/L ALT (0-33) U/L Alkaline Phosphata se (35-105) IU/L C-Reactive Protein (0.0-4.9) mg/L Total Protein (6.6-8.7) g/dL Albumin (3.5-5.2) g/dL Globulin (1.3-4.6) g/dL Lipase (13-60) U/L HCG, Qual Negative (Negative) Urine Color Yellow (Yellow) Urine Appearance Sl hazy (CLEAR) Urine pH 5 (5-7) Ur Specific Gravit y 1.005 (1.005-1.030) Urine Protein 1+ H (Negative) Urine Glucose (UA) Norm (Normal) Urine Ketones 2+ H (Negative) Urine Blood 3+ H (Negative) Urine Nitrate Negative (Negative) Urine Bilirubin Neg (Negative) Urine Urobilinogen Norm (Negative) mg/dL Ur Leukocyte Di ase Negative (Negative) Urine RBC 10-15 H (0-2) /hpf Urine WBC 0-4 H (0-5) /hpf Ur Squamous Epith Cells 15-25 H (0-5) /hpf Amorphous Sediment Not Reportable Urine Bacteria 1+ H (NONE) /hpf 09/06/20 Range/Units 15:18 WBC (4.5-13.0) 10^3/ uL RBC (4.1-5.3) 10^6/u L Hgb (11.5-15.3) g/dL Hct (37.0-47.0) % MCV (81-99) fL MCH (28.0-34.0) pg MCHC (30.0-36.0) g/dL RDW (12.1-15.1) % Plt Count (130-400) 10^3/c mm MPV (7.4-10.4) fL Neut % (Auto) % Lymph % (Auto) % [place] % (Auto) % Eos % (Auto) % Baso % (Auto) % Neut # (Auto) (1.8-8.0) 10^3/u L Lymph # (Auto) (1.5-6.5) 10^3/u L [place] # (Auto) (0.2-0.9) 10^3/u L Eos # (Auto) (0.0-0.8) 10^3/u L Baso # (Auto) (0.0-0.1) 10^3/u L Nucleated RBC % (a uto) % Nucleated RBCs # /100WBC ESR (0-15) mm/hr Sodium (136-145) mmol/L Potassium (3.5-5.1) mmol/L Chloride (98-107) mmol/L Carbon Dioxide (22-29) mmol/L Anion Gap (5-19) BUN (6-20) mg/dL Creatinine (0.5-0.9) mg/dL GFR Calculation (90-130) mL/min Glucose (65-115) mg/dL Calculated Osmolal ity (285-295) mOsm/k g Lactate (0.5-2.2) mmol/L Calcium (8.5-10.5) mg/dL Total Bilirubin (0.15-1.2) mg/dL AST (0-32) U/L ALT (0-33) U/L Alkaline Phosphata se (35-105) IU/L C-Reactive Protein 5.4 H (0.0-4.9) mg/L Total Protein (6.6-8.7) g/dL Albumin (3.5-5.2) g/dL Globulin (1.3-4.6) g/dL Lipase (13-60) U/L HCG, Qual (Negative) Urine Color (Yellow) Urine Appearance (CLEAR) Urine pH (5-7) Ur Specific Gravit y (1.005-1.030) Urine Protein (Negative) Urine Glucose (UA) (Normal) Urine Ketones (Negative) Urine Blood (Negative) Urine Nitrate (Negative) Urine Bilirubin (Negative) Urine Urobilinogen (Negative) mg/dL Ur Leukocyte Di ase (Negative) Urine RBC (0-2) /hpf Urine WBC (0-5) /hpf Ur Squamous Epith Cells (0-5) /hpf Amorphous Sediment Urine Bacteria (NONE) /hpf Imaging Data ^: CT Abd/Pel: Attestation: I personally reviewed and interpreted this imaging study as follows: Radiologist's impression: [address] [address] [address] Scan Report Signed Patient: Doc Ball #: [id number] : 2000Acct#:[id number] Age/Sex: Date: [birth year] Loc: ERRoom/Bed: Attending Dr: Ordering Provider/Ordering MD: Ana Nevarez [place] [facility] [place] Service: 09/06/20 Procedure(s): CT abdomen pelvis w con* [id number] Accession Number(s): [id number] Report Number: [id number] WS: [id number] CT scan of the abdomen and pelvis with IV contrast. Additional two-dimensional coronal and sagittal reconstruction was performed. 09/06/2020 Clinical Data: lower abdominal pain, vomiting, diarrhea Comparison: CT abdomen and pelvis, 04/20/2020. DLP: 434.[address] scans at [facility] use at least one of these dose optimization techniques: automated exposure control; mA and/or kV adjustment per patient size (includes targeted exams where dose is matched to clinical indication); or iterative reconstruction. Findings: The lower lungs show no nodules, masses or effusions. The liver, gallbladder, spleen, adrenal glands and pancreas are normal. The kidneys show equal bilateral contrast excretion with no cyst or masses. The abdominal aorta is normal in size. No appendicitis or diverticulitis is seen. The stomach, small bowel and colon are unremarkable. No abscess, adenopathy, ascites, mass, obstruction or free air is seen. The bladder is unremarkable. The uterus is normal. No inguinal hernia is seen. The bones of the lower thorax, lumbar spine, pelvis, and hips are normal. CT/CT abdomen pelvis w con* [id number] Impression: Negative CT scan of the abdomen and pelvis. Dictated By:Alma Rosa Yi MD Signed By:Alma Rosa Yi MDSigned Date/Time:09/06/20 1618 DD/ 12 Discharge Plan Discharge Patient Disposition: Admitted As Inpatient Admit Provider: Paco Bethea Clinical Impression: ABBIE (acute kidney injury), Gastroenteritis Condition: Stable Coding Level of Care Code ED Operations Label Clerk for Chg Fwd Exam Detailed
[2020-09-06 15:21] VITALS: BP 128/87; PULSE 70; RESP 18; O2SAT 100
[2020-09-06 15:27] LABS: Basophils % 0.1 %; Eosinophils % 0.1 %; Hematocrit 42.7 % (37.0-47.0); Hemoglobin 14.7 g/dL (11.5-15.3); Lymphocytes # 1.7 10^3/uL (1.5-6.5); Lymphocytes % 10.7 %; Mean Corpuscular HGB Conc 34.4 g/dL (30.0-36.0); Mean Corpuscular Volume 87.1 fL (81-99); Mean Platelet Volume 10.4 fL (7.4-10.4); Monocytes # 0.5 10^3/uL (0.2-0.9); Monocytes % 3.4 %; Neutrophils # 13.66 10^3/uL (1.8-8.0); Neutrophils % 85.4 %; Nucleated Red Blood Cells % 0 %; Platelet Count 338 10^3/cmm (130-400); Red Cell Distribution Width 11.8 % (12.1-15.1)
[2020-09-06] MEDS: ondansetron 2 mg/ML SDV 2 mL 4 MG IVP (15:28)
[2020-09-06] MEDS: sodium chloride 0.9% 1,000 ML 999 ML IV (15:29)
[2020-09-06 15:50] LABS: HCG, Serum Qual Negative (Negative)
[2020-09-06 15:53] LABS: Alanine Aminotransferase 17 U/L (0-33); Albumin Level 4.8 g/dL (3.5-5.2); Alkaline Phosphatase 90 IU/L (35-105); Anion Gap 17.8 (5-19); Aspartate Amino Transferase 19 U/L (0-32); Blood Urea Nitrogen 20 mg/dL (6-20); C Reactive Protein 5.3 mg/L (0.0-4.9); Calcium 9.9 mg/dL (8.5-10.5); Carbon Dioxide 21 mmol/L (22-29); Chloride 102 mmol/L (98-107); Creatinine Clr Calc Pharmacy 49.1392; Globulin 3.3 g/dL (1.3-4.6); Glomerular Filtration Rate 38.3 mL/min (90-130); Glucose 100 mg/dL (65-115); Lipase 12 U/L (13-60); Osmolality Calculated 287 mOsm/kg (285-295); Potassium 3.8 mmol/L (3.5-5.1); Sodium 137 mmol/L (136-145); Total Bilirubin 0.5 mg/dL (0.15-1.2); Total Protein 8.1 g/dL (6.6-8.7)
[2020-09-06 15:54] LABS: Lactate (Lactic Acid level) 1.4 mmol/L (0.5-2.2)
[2020-09-06] MEDS: iodixanol 320 mg/mL 100mL Btl IV (16:07)
[2020-09-06 16:10] LABS: Add Urine Microscopic? YES; Bilirubin Urine Neg (Negative); Blood Urine 3+ (Negative); Glucose Urine UA Norm (Normal); Ketones Urine 2+ (Negative); Leukocyte Esterase Urine Negative (Negative); Nitrate Urine Negative (Negative); Protein Urine 1+ (Negative); Specific Gravity, Urine 1.005 (1.005-1.030); Urine Appearance SL Hazy (CLEAR); Urine Color Yellow (Yellow); Urobilinogen Urine Norm (Negative); pH Urine 5 (5-7)
[2020-09-06 16:33] LABS: Bacteria Urine 1+ /hpf; Squamous Epithelial Cell Urine 15-25 /hpf (0-5); WBC Urine 0-4 /hpf (0-5)
[2020-09-06 16:35] LABS: Add Urine Culture? No
[2020-09-06] MEDS: metoclopramide 5 mg/mL SDV 2 mL 10 MG IVP (17:13)
[2020-09-06 17:21] VITALS: BP 108/72; PULSE 77; RESP 18; O2SAT 98
--- NOTE | 2020-09-06 18:40 | PM.HP ---
Providers/Chief Complaint Chief Complaint: N/V, STATES FEELS LIKE COLITIS IS WORSE History of Present Illness 19-year-old lady without much significant past medical history, but with history of episode of colitis about 4 months ago, without identified significant cause, but with suspicion of infectious colitis for which she received a course of antibiotics and it had resolved, presents to ER due to nausea vomiting and diarrhea since Friday, with mild abdominal discomfort. She has not been able to keep down much food or drink. She was seen in ER for the same problem on 09/03, was given a prescription of Cipro and Flagyl, but still there is not been improvement. She states she tried to stick with the treatment as much as she could. She does states she took ibuprofen yesterday in attempt to help with her symptoms. She denies fever at home. She has been feeling somewhat cold. Denies any headache. Has had no cough, shortness of breath. In the ER she is afebrile, with leukocytosis of 16,000, although without other signs to suggest sepsis. CT abdomen pelvis with contrast was performed which was unremarkable. Lipase is not elevated. Microscopic hematuria noted on UA, however, she had indicated she had recently just finished her menses. No renal stones seen on CT. She is noted to have acute kidney injury, with previously normal creatinine, and today creatinine of 1.7. Review of Systems Const: Reports: chills; Denies: fever(s), body aches or malaise Eyes: Denies: change in vision or eye redness ENMT: Denies: throat pain, oral sores or ear or mastoid pain Card: Denies: chest pain, edema, pre-syncope or dyspnea on exertion Resp: Denies: dyspnea, productive cough, change in phlegm color or hemoptysis GI: Reports: abdominal pain, nausea, vomiting and diarrhea; Denies: constipation, hematochezia or melena : Denies: flank pain, urinary frequency or hematuria Musc: Denies: back pain, joint swelling or joint redness Skin/Breast: Denies: rash, sores or new lesions Neuro: Denies: headache(s), numbness in extremities, weakness in extremities, dizziness, confusion or seizure-like activity Endo: Denies: polyuria or polydipsia Nate/Lymph: Denies: easy bleeding or purpura All/Imm: Denies: urticaria, throat swelling or tongue swelling Medications/Allergies Home Medications Medication Instructions Recorded Confirmed Last Taken Type ondansetron 4 mg PO Q6H PRN #14 tab 04/20/20 09/06/20 09/06/20 09:00 Rx ciprofloxacin HCl [Cipro] 500 mg PO BID #14 tab 09/03/20 09/06/20 09/06/20 09:00 Rx metronidazole [Flagyl] 500 mg PO BID 7 Days #14 tab 09/03/20 09/06/20 09/06/20 09:00 Rx ibuprofen 600 mg PO PRN 09/06/20 09/06/20 09/05/20 History Allergies Allergy/AdvReac Type Severity Reaction Status Date / Time No Known Allergies Allergy Verified 09/06/20 15:18 PFSH Acute PFSH: Medical History Colitis Surgical History H/O neck surgery History of rhinoplasty Family History Other No significant family history Social History Smoking and tobacco status: current every day smoker cigarettes Packs smoked per day: 0.5 Alcohol intake: never Substance/Drug Use: never Lives independently: Yes Household members: significant other Marital status: Single Current occupational status: employed Vitals/I&O/Wt Last Vital Signs Temp 98.7 F 09/06/20 14:58 Pulse 77 09/06/20 17:21 Resp 18 09/06/20 17:21 BP 108/72 09/06/20 17:21 Pulse Ox 98 09/06/20 17:21 Weight last 48 hrs Weight 58.967 kg Physical Exam Const: COMMON NORMALS: no acute distress and patient oriented x3 HENMT: COMMON NORMALS: oropharynx normal Neck/C-Spine: COMMON NORMALS: no JVD Resp: COMMON NORMALS: normal respiratory effort and clear to auscultation bilaterally AUSCULTATION: clear to auscultation bilaterally Cardio: COMMON NORMALS: no JVD, regular rhythm, S1 normal heart sound present, S2 normal heart sound present and No murmurs present (Cardio) RHYTHM: regular rhythm HEART SOUNDS: S1 normal heart sound present and S2 normal heart sound present GI: COMMON NORMALS: Normal to inspection, nondistended, normoactive bowel sounds present and Soft to palpation PALPATION: Yes Soft to palpation and Yes Tenderness to palpation present (GI) (Mild tenderness on palpation, periumbilical area/abdominal wall) Extremity: COMMON NORMALS: no joint enlargement and no pedal edema Neuro: COMMON NORMALS: patient oriented x3 and moves all extremities Skin: COMMON NORMALS: no rashes or lesions noted GENERAL SKIN EXAM: no rashes or lesions noted Data : 09/06/20 15:18 09/06/20 15:18 A&P Assessment and plan (1) Gastroenteritis: Persistent nausea and vomiting. Diarrhea. Denies blood in the vomitus or stool. Dark black stools. Minimal abdominal pain, mostly muscle discomfort from vomiting. Has not had any fever, but is having some chills. She is being tested for coronavirus with rapid antigen test and PCR. She was prescribed Cipro and Flagyl during recent visit, although has not noted any improvement in her symptoms. Try taking medication as best she could. Has not been able to keep down much terms of food or drink. Took ibuprofen to help relieve symptoms. States that she has history of colitis about 4 months ago for which she was given a course of antibiotics and which resolved. Denies history of IBD in herself or any family members. Denies any history of other intermittent conditions in the family. For now we will continue to antibiotics due to significant leukocytosis, switch to IV, although if improving rapidly, perhaps antibiotics may be discontinued. Provide IV hydration. Symptomatic management of nausea. NSAID induced gastritis is additional consideration as discussed with her. We will start an IV famotidine (IV PPI currently unavailable). We will check ESR, CRP. Status: Acute (2) ABBIE (acute kidney injury): Acute kidney injury resultant due to either hyperkalemia, with nausea vomiting, diarrhea, poor oral intake, with also possible contribution from NSAID intake. We will give IV fluid challenge. Reassess renal function. Monitor I&O. Status: Acute Additional A&P Information Microscopic hematuria noted: After recent menses reported. Dehydration: IV hydrate Attestations Medical Necessity Statement*: Admission of over 2 midnights ago needed for assessment of management of gastroenteritis, nonresolving nausea and vomiting, unresponsive to outpatient treatment, with acute kidney injury. Coding Level of Care Code Acute Mycology Teacher for Chg Fwd Diagnoses Gastroenteritis K52.9 ABBIE (acute kidney injury) N17.9
[2020-09-06 20:07] VITALS: BP 116/64; PULSE 80; RESP 18; O2SAT 98
[2020-09-06 20:13] LABS: SARS Covid-2 Antigen Negative (Negative)
[2020-09-06] MEDS: lactated ringers 1,000 ML 150 ML IV (20:43)
[2020-09-06] MEDS: metroNIDAZOLE IV 500 MG/100 ML PREMIX 100 MG IV (20:44)
[2020-09-06] MEDS: famotidine 20 mg/2 mL INJ IVP (20:49)
[2020-09-06 20:54] LABS: C Reactive Protein 5.4 mg/L (0.0-4.9)
[2020-09-06 21:24] VITALS: BP 109/76; PULSE 62; RESP 18; TEMP 37; O2SAT 98
[2020-09-06 21:38] LABS: Erythrocyte Sedimentation Rate 9 mm/hr (0-15)
[2020-09-06] MEDS: ciprofloxacin 400 MG/200 ML PREMIX 200 MG IV (22:12)
[2020-09-07 00:49] VITALS: BP 104/67; PULSE 82; RESP 17; TEMP 37.6; O2SAT 97
[2020-09-07] MEDS: ondansetron 2 mg/ML SDV 2 mL 4 MG IVP ×2 (02:29→08:12)
[2020-09-07 04:57] VITALS: BP 91/49; PULSE 93; RESP 18; TEMP 37.3; O2SAT 97
[2020-09-07] MEDS: lactated ringers 1,000 ML 150 ML IV ×2 (05:36→09:15)
[2020-09-07] MEDS: metroNIDAZOLE IV 500 MG/100 ML PREMIX 100 MG IV (05:37)
[2020-09-07 06:50] LABS: Basophils % 0.2 %; Hematocrit 39.4 % (37.0-47.0); Lymphocytes # 2.4 10^3/uL (1.5-6.5); Mean Platelet Volume 11.6 fL (7.4-10.4); Monocytes % 5.3 %; Neutrophils # 15.01 10^3/uL (1.8-8.0); Neutrophils % 81.1 %; Nucleated Red Blood Cells % 0 %; Platelet Count 265 10^3/cmm (130-400); Red Blood Count 4.33 10^6/uL (4.1-5.3); Red Cell Distribution Width 12.2 % (12.1-15.1); White Blood Count 18.5 10^3/uL (4.5-13.0)
[2020-09-07 07:14] LABS: Alanine Aminotransferase 12 U/L (0-33); Albumin Level 3.8 g/dL (3.5-5.2); Alkaline Phosphatase 78 IU/L (35-105); Aspartate Amino Transferase 18 U/L (0-32); Blood Urea Nitrogen 17 mg/dL (6-20); Calcium 8.4 mg/dL (8.5-10.5); Carbon Dioxide 19 mmol/L (22-29); Chloride 105 mmol/L (98-107); Globulin 2.8 g/dL (1.3-4.6); Glomerular Filtration Rate 52.2 mL/min (90-130); Glucose 86 mg/dL (65-115); Osmolality Calculated 285 mOsm/kg (285-295); Sodium 137 mmol/L (136-145); Total Bilirubin 0.3 mg/dL (0.15-1.2); Total Protein 6.6 g/dL (6.6-8.7)
[2020-09-07 07:19] LABS: Anion Gap 16.8 (5-19); Potassium 3.8 mmol/L (3.5-5.1)
[2020-09-07 07:36] VITALS: BP 91/57; PULSE 84; RESP 16; TEMP 37.4; O2SAT 97
[2020-09-07] MEDS: famotidine 20 mg/2 mL INJ IVP (08:13)
[2020-09-07] MEDS: ciprofloxacin 400 MG/200 ML PREMIX 200 MG IV (10:15)
--- NOTE | 2020-09-07 10:50 | PC.CHAP ---
Pastoral Care Encounter/Spiritual Assessment Type of Contact [] Declined compensation supervisor visit [] Patient/Family/Request visit [] Outpatient visit [] Follow-up visit [] Physician referral [] Code/Alert [] Routine visit [] Staff referral [] Actively dying [] Patient sleeping [] Family support [] [] Out of room [] Palliative care [] [] Receiving care in room [] Pre-surgical visit [] Trauma [] Long length of stay [] ICU visit [x] Other: isolation in room Relational/Emotional Strength [] Patient feels connected with others/family/visitors/staff [] Distress [] Loneliness/isolation [] Abandonment Spirituality of Patient [] Person of Zainab [] Attends Caodaism of their Zainab [] Believes in Prayer [] Reads Bible or Restorationist materials [] There are Spiritual issues to be addressed Test Skein Winder Interventions [] Prayer [] Active listening [] Non-anxious presence [] Spiritual/emotional support [] Crisis/trauma care [] Spiritual counseling [] Bereavement support [] Provided bereavement packet [] Provided Bible/devotional materials [] Provided toy/stuffed animal, coloring book to patient or family member [] Provided Communion [] Anointing/[place] [] Salvation [] Completed spiritual assessment [] Other: Impact on Illness or Injury [] Angry [] Fearful [] Anxious [] Often cries [] Exhaustion [] Unable to work [] Unable to attend voodoo [] Unable to walk/stand [] Unable to read [] Unable to drive [] Unable to eat/drink [] Unable to sleep [] Unable to be with family [] Patient intubated [] Other: Summary isolation in room Time spent with patient 5 mins
[2020-09-07 11:12] VITALS: BP 121/78; PULSE 66; RESP 16; TEMP 37; O2SAT 99
[2020-09-07 13:57] LABS: Coronavirus Test Green County Not Detected
[2020-09-07 15:54] VITALS: BP 118/79; PULSE 74; RESP 16; TEMP 36.9; O2SAT 99
[2020-09-07 20:00] VITALS: BP 113/75; PULSE 66; RESP 19; TEMP 37.5; O2SAT 99
--- NOTE | 2020-09-07 21:10 | PM.PN ---
Subjective Subjective: Interval history: Today she noted mild improvement. She has not been as nauseated, but nausea persists, and had still poor appetite and an episode of vomiting. Some abdominal discomfort, no severe pain. Denies any pelvic pain or discharge. Was curious about her gallbladder, discussed results of the CT scan and her liver parameters which both looked good. She describes still having some diarrhea, although per nursing staff has not had a bowel movement, and stool studies are not collected. Vitals/I&O/Wt Last Vital Signs Temp 99.5 F 09/07/20 20:00 Pulse 66 09/07/20 20:00 Resp 19 H 09/07/20 20:00 BP 113/75 09/07/20 20:00 Pulse Ox 99 09/07/20 20:00 09/07/20 09/07/20 09/07/20 06:59 14:59 22:59 Intake Total 2200 / 2300 1087.5 / 1087.5 1120 / 2207.5 Output Total 0 / 200 1000 / 1000 Balance 2200 / 2100 87.5 / 87.5 1120 / 1207.5 Weight last 48 hrs Weight 58.967 kg Physical Exam Const: COMMON NORMALS: no acute distress and patient oriented x3 HENMT: COMMON NORMALS: oropharynx normal Neck/C-Spine: COMMON NORMALS: no JVD Resp: COMMON NORMALS: normal respiratory effort and clear to auscultation bilaterally AUSCULTATION: clear to auscultation bilaterally Cardio: COMMON NORMALS: no JVD, regular rhythm, S1 normal heart sound present, S2 normal heart sound present and No murmurs present (Cardio) RHYTHM: regular rhythm HEART SOUNDS: S1 normal heart sound present and S2 normal heart sound present GI: COMMON NORMALS: Normal to inspection, nondistended, normoactive bowel sounds present and Soft to palpation PALPATION: Yes Soft to palpation and Yes Tenderness to palpation present (GI) (Mild tenderness over the lateral abdomen on both sides) Extremity: COMMON NORMALS: no joint enlargement and no pedal edema Neuro: COMMON NORMALS: patient oriented x3 and moves all extremities Skin: COMMON NORMALS: no rashes or lesions noted GENERAL SKIN EXAM: no rashes or lesions noted Data : 09/07/20 05:53 09/07/20 05:53 A&P Assessment and plan (1) Gastroenteritis: Today there is some improvement in his symptoms, however, still nausea, poor appetite, episode of vomiting. Leukocytosis has worsened, however, to 18.5. Discussed with her. Stool studies have not been collected so far with lack of sample. Discussed with her possibility of viral gastroenteritis. Rapid COVID-19 test was negative. PCR pending. However, this may be due to a different virus. Discussed with her rather low likelihood of IBD. She has no family history, and ESR is normal, CRP is minutely elevated. Given rising leukocytosis, still poor oral intake, vomiting, we will continue treatment in the hospital. In the evening she would like to transition to oral medications. If symptoms continue to improve and tolerates oral medications, With improvement in leukocytosis, no other parameters for sepsis, perhaps may be able to return home with outpatient follow-up. Acute kidney injury is showing improvement, creatinine down to 1.3. Discussed with her again to avoid NSAIDs. Trial of full liquid. Status: Acute (2) ABBIE (acute kidney injury): Improving. Acute kidney injury resultant due to either hyperkalemia, with nausea vomiting, diarrhea, poor oral intake, with also possible contribution from NSAID intake. We will give IV fluid challenge. Reassess renal function. Monitor I&O. Status: Acute Additional A&P Information Microscopic hematuria noted: After recent menses reported. Dehydration: IV hydrate Attestations Medical Necessity Statement*: Continue admission for assessment management of nonresolving nausea and vomiting, gastroenteritis which did not respond to outpatient treatment, poor oral intake, ABBIE. Coding Level of Care Code Acute General Car Yard Supervisor for Dipika Benltey Diagnoses Gastroenteritis K52.9 ABBIE (acute kidney injury) N17.9
[2020-09-07] MEDS: acetaminophen 325 mg Tablet 650 MG PO (21:30)
[2020-09-07] MEDS: pantoprazole DR 40 mg Tablet PO (21:30)
[2020-09-07] MEDS: metroNIDAZOLE 500 MG Tablet PO (21:30)
[2020-09-07] MEDS: ciprofloxacin 500 mg Tablet PO (22:56)
[2020-09-08] VITALS: BP 97/59; PULSE 69; RESP 17; TEMP 36.9; O2SAT 97
[2020-09-08 05:43] VITALS: BP 103/67; PULSE 64; RESP 16; TEMP 37; O2SAT 98
[2020-09-08 06:18] LABS: Basophils # 0.1 10^3/uL (0.0-0.1); Basophils % 0.5 %; Eosinophils # 0.2 10^3/uL (0.0-0.8); Eosinophils % 1.3 %; Hematocrit 39.2 % (37.0-47.0); Hemoglobin 12.9 g/dL (11.5-15.3); Lymphocytes # 4.9 10^3/uL (1.5-6.5); Lymphocytes % 38.1 %; Mean Corpuscular HGB Conc 32.9 g/dL (30.0-36.0); Mean Corpuscular Hemoglobin 29.3 pg (28.0-34.0); Mean Corpuscular Volume 88.9 fL (81-99); Monocytes # 0.7 10^3/uL (0.2-0.9); Monocytes % 5.6 %; Neutrophils # 6.96 10^3/uL (1.8-8.0); Neutrophils % 54.3 %; Nucleated Red Blood Cells % 0 %; Platelet Count 316 10^3/cmm (130-400); Red Blood Count 4.41 10^6/uL (4.1-5.3); Red Cell Distribution Width 12.1 % (12.1-15.1); White Blood Count 12.8 10^3/uL (4.5-13.0)
[2020-09-08 06:47] LABS: Alanine Aminotransferase 11 U/L (0-33); Alkaline Phosphatase 70 IU/L (35-105); Anion Gap 11.3 (5-19); Aspartate Amino Transferase 12 U/L (0-32); Blood Urea Nitrogen 10 mg/dL (6-20); Carbon Dioxide 26 mmol/L (22-29); Chloride 103 mmol/L (98-107); Globulin 2.7 g/dL (1.3-4.6); Glomerular Filtration Rate 91.4 mL/min (90-130); Glucose 74 mg/dL (65-115); Osmolality Calculated 282 mOsm/kg (285-295); Potassium 3.3 mmol/L (3.5-5.1); Sodium 137 mmol/L (136-145); Total Bilirubin 0.4 mg/dL (0.15-1.2); Total Protein 6.7 g/dL (6.6-8.7)
--- NOTE | 2020-09-08 07:04 | PC.NURSE ---
Report to Noreen MENDOZA
[2020-09-08 08:00] VITALS: BP 112/72; PULSE 74; RESP 17; TEMP 36.7; O2SAT 99
[2020-09-08] MEDS: ciprofloxacin 500 mg Tablet PO (09:18)
[2020-09-08] MEDS: metroNIDAZOLE 500 MG Tablet PO (09:18)
[2020-09-08] MEDS: pantoprazole DR 40 mg Tablet PO (09:18)
[2020-09-08] MEDS: potassium chloride ER 20 mEq Tablet PO (09:18)
--- NOTE | 2020-09-08 11:18 | PM.DCS ---
Discharge Providers Date of Admission: 09/06/20 18:11 Date of Discharge: September 08, 2020 Attending Provider at Admission: Paco Bethea Attending Provider at Discharge: Paco Bethea Diagnoses at Discharge Discharge Diagnosis (1) Gastroenteritis: Status: Acute (2) ABBIE (acute kidney injury): Status: Acute (3) Hypokalemia: Status: Acute (4) Microscopic hematuria: Status: Acute Reason for Visit Reason for Visit: N/V, STATES FEELS LIKE COLITIS IS WORSE Hospital Course Hospital Course 19-year-old lady with reported history of colitis about 4 months ago at which time was treated with a course of antibiotics, with complete resolution, presented to the hospital with complaint of vomiting, diarrhea since Friday. This was a return visit, previously seen in ER day before at which time she was prescribed a course of ciprofloxacin, Flagyl, Zofran. However, she was unable to keep much food or drink down, including the medications. In ER she was found to have a cytosis of 16,000, appeared dehydrated, with noted acute kidney injury, creatinine 1.7, with normal baseline. Electrolytes were normal, although with noted mild hypokalemia today, 3.3. hCG was noted negative. UA with noted minor microscopic hematuria, although she had noted she had just recently finished menses. Contrast CT abdomen pelvis was unremarkable., Her antibiotics were transitioned to IV, she received IV hydration. Stool studies were ordered, however, her diarrhea had appeared to resolve after admission to the hospital. She has had several more episodes of vomiting while in the hospital, nonbloody, nonbilious. Initially with absent oral intake, however, this is gradually improved. So far she has tolerated clear liquid diet, as well as switch to oral medications. This morning she reports she is feeling better. She had an episode of vomiting today after potassium dose given to her today, but otherwise tolerated clear liquids and her medications. She is asked to follow-up with her primary care provider to confirm resolution of her symptoms. She states she understands to return to hospital in case of recurrence of any concerning symptoms. She has no history of abdomen conditions, no history of IBD in the family. Her ESR was normal. CRP was minutely elevated at 5.4. She states she will discuss with her primary care doctor consideration of referral to gastroenterology given recurrent episodes. Please follow potassium level. Please also follow-up for resolution of microscopic hematuria. Physical Exam Const: COMMON NORMALS: no acute distress and patient oriented x3 HENMT: COMMON NORMALS: oropharynx normal Neck/C-Spine: COMMON NORMALS: no JVD Resp: COMMON NORMALS: normal respiratory effort and clear to auscultation bilaterally AUSCULTATION: clear to auscultation bilaterally Cardio: COMMON NORMALS: no JVD, regular rhythm, S1 normal heart sound present, S2 normal heart sound present and No murmurs present (Cardio) RHYTHM: regular rhythm HEART SOUNDS: S1 normal heart sound present and S2 normal heart sound present GI: COMMON NORMALS: Normal to inspection, nondistended, normoactive bowel sounds present, Soft to palpation and non-tender PALPATION: Yes Soft to palpation Extremity: COMMON NORMALS: no joint enlargement and no pedal edema Neuro: COMMON NORMALS: patient oriented x3 and moves all extremities Skin: COMMON NORMALS: no rashes or lesions noted GENERAL SKIN EXAM: no rashes or lesions noted Discharge Data Data Completed and Pending: Completed Studies During Hospitalization Category Date Time Status CT abdomen pelvis w con* [id number] Urge nt Cat Scan 09/06/20 15:13 Completed Pending at discharge Category Date Time Status Clostridioides Di fficile PCR Routin e Lab 09/06/20 20:26 Uncollected Complete Blood Co unt w/Auto AM LABS Lab 09/09/20 04:00 Ordered Comprehensive Met abolic Panel AM LA BS Lab 09/09/20 04:00 Ordered Enteric Bacterial Panel by PCR Rout ine Lab 09/06/20 20:26 Uncollected Enteric Parasite Panel by PCR Mario Alberto ne Lab 09/06/20 20:26 Uncollected Labs from last 24 hours 09/08/20 09/08/20 09/06/20 05:35 05:35 18:33 WBC 12.8 RBC 4.41 Hgb 12.9 Hct 39.2 MCV 88.9 MCH 29.3 MCHC 32.9 RDW 12.1 Plt Count 316 MPV 11.0 H Neut % (Auto) 54.3 Lymph % (Auto) 38.1 [place] % (Auto) 5.6 Eos % (Auto) 1.3 Baso % (Auto) 0.5 Neut # (Auto) 6.96 Lymph # (Auto) 4.9 [place] # (Auto) 0.7 Eos # (Auto) 0.2 Baso # (Auto) 0.1 Nucleated RBC % (a uto) 0 Nucleated RBCs # 0.0 Sodium 137 Potassium 3.3 L Chloride 103 Carbon Dioxide 26 Anion Gap 11.3 BUN 10 Creatinine 0.8 GFR Calculation 91.4 Glucose 74 Calculated Osmolal ity 282 L Calcium 9.0 Total Bilirubin 0.4 AST 12 ALT 11 Alkaline Phosphata se 70 Total Protein 6.7 Albumin 4.0 Globulin 2.7 Nasal/Oral COVID-1 9 PCR Not detected Vitals: Last Vital Signs Temp 98.1 F 09/08/20 08:00 Pulse 74 09/08/20 08:00 Resp 17 09/08/20 08:00 BP 112/72 09/08/20 08:00 Pulse Ox 99 09/08/20 08:00 Discharge Plan Discharge Patient Disposition: Home Condition: Stable Prescriptions: New pantoprazole 40 mg Tablet,Delayed Release (Dr/Ec) 40 mg PO DAILY Qty: 60 RF: 0 Continued ondansetron 4 mg tablet,disintegrating 4 mg PO Q6H PRN (Reason: nausea and vomiting) Qty: 14 RF: 0 metronidazole [Flagyl] 500 mg tablet 500 mg PO BID 7 Days Qty: 14 RF: 0 ciprofloxacin HCl [Cipro] 500 mg tablet 500 mg PO BID Qty: 14 RF: 0 Discontinued ibuprofen 200 mg Tablet 600 mg PO PRN RF: 0 Discharge Orders: Discharge Order (Routine); Ordered 09/08/20 Ordered By: Paco Bethea Referrals: [facility] [Staff Physician] - 4-7 days Discharge Diet: As Directed and Full LIquid Discharge Activity: Increase activity as tolerated Patient Instructions: Ciprofloxacin (By mouth), Metronidazole (By mouth), Ondansetron (By mouth), Hypokalemia (GEN), Acute Nausea and Vomiting (GEN) Activity Restrictions/Additional Instructions: Please avoid ibuprofen or any other NSAIDs. If you develop a high fever, severe abdominal pain, severe nausea or vomiting with inability to keep down food or drink or your medications, please seek medical attention. Please follow-up with your primary care provider, discuss referral to a gastroenterology specialist. Your potassium is mildly low, please include foods rich in potassium like bananas, potatoes, tomatoes, etc Have your primary care doctor follow up your potassium level. Discharge Attestations Time Spent in Discharge Care*: greater than 30 min Quality Metrics Clinical Quality Measures During this hospital stay, did patient experience: None Coding Level of Care Code Acute Carbon Accountant for Chg Fwd Diagnoses Gastroenteritis K52.9 ABBIE (acute kidney injury) N17.9 Hypokalemia E87.6 Microscopic hematuria R31.29
[2020-09-08 11:50] VITALS: BP 143/84; PULSE 59; RESP 18; TEMP 36.8; O2SAT 100
[2020-09-08 12:29] VITALS: BP 143/84; PULSE 59; RESP 18; TEMP 36.8; O2SAT 100
--- NOTE | 2020-09-11 16:21 | PC.RESP ---
Smoking Cessation information sent to patient.
== END 2020-09-08 12:35 | disposition home or self-care (01) | DRG 392 ==
LOC: ER 18:27 → MEDSURG 18:57
PROVIDERS: Admitting Provider Internal Medicine; Emergency Provider Family Medicine; Visit Provider Internal Medicine
DX: K52.9 Noninfective gastroenteritis and colitis, unspecified (principal); N17.9 Acute kidney failure, unspecified; R31.29 Other microscopic hematuria; E87.6 Hypokalemia; E86.0 Dehydration; F17.210 Nicotine dependence, cigarettes, uncomplicated
CPT/HCPCS: 12345; 36415; 74177; 80053; 81001; 83605; 83690; 84703; 85025; 85651; 86140; 87426; 87635; 99283; J0744; J2405; J2765; J3490; J7030; Q9967; S0030

== ENCOUNTER 2021-05-16 16:42 | Emergency (ER) | payer OTHER, MEDICAID, SELFPAY ==
[2021-05-16 18:01] VITALS: BP 116/78; PULSE 77; RESP 18; TEMP 36.8; O2SAT 99; BMI 26.5
--- NOTE | 2021-05-16 19:17 | W.ED.PREGNAN ---
Documented by User: YONG Rosales 05/17/21 00:58 HPI - General: Chief complaint: Vaginal Bleeding Stated complaint: 5 WKS , BLEEDING & CRAMPING Time Seen by Provider: 05/16/21 19:09 History of Present Illness: HPI Narrative: Patient is a G1 20-year-old female that is 5 weeks and comes to the ED with cramping and bleeding. Symptoms started this morning. 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 She describes her abdominal cramping is mild. Patient has not taken any Tylenol or Motrin before coming to the ED for pain. Patient says she does not need any pain meds at this time. Denies any fever, chills, nausea/vomiting, shortness of breath, chest pain, bladder or bowel symptoms. Date of Last Menstrual Period: 04/14/21 Associated symptoms: Deny abdominal pain, dysuria, headache(s), nausea or vomiting Review of Systems Const: Denies: fever(s), chills or fatigue Eyes: Denies: change in vision or eye discomfort ENMT: Denies: throat pain, odynophagia, nasal discharge or nasal congestion Card: Denies: chest pain, palpitations, edema, swelling of feet/ankles, dyspnea on exertion or orthopnea Resp: Denies: dyspnea, productive cough or non-productive cough GI: Reports: GI cramping; Denies: abdominal pain, nausea, vomiting, diarrhea, constipation or hematochezia : Reports: vaginal bleeding; Denies: flank pain, dysuria or hematuria Musc: Denies: neck pain, back pain or extremity swelling Skin/Breast: Denies: rash or new lesions Neuro: Denies: headache(s), numbness in extremities or weakness in extremities PFS ED PFSH: Medical History Colitis Surgical History H/O neck surgery History of rhinoplasty Family History Other No significant family history Social History Smoking and tobacco status: current every day smoker cigarettes Packs smoked per day: 0.5 Alcohol intake: never Lives independently: Yes Household members: significant other Marital status: Single Current occupational status: employed Female Reproductive History: Date of last menstrual period: 04/14/21 Physical Exam Const: COMMON NORMALS: no acute distress, patient oriented x3, healthy appearing and alert GENERAL APPEARANCE: cooperative and comfortable HENMT: COMMON NORMALS: normocephalic HEAD & SCALP: normocephalic MOUTH: Normal oral and palatal mucosa present THROAT: posterior oropharynx normal and uvula midline Eye: COMMON NORMALS: Equal, round and reactive pupils present PUPIL: Yes Equal, round and reactive pupils present Neck/C-Spine: COMMON NORMALS: supple GENERAL: Yes normal visual inspection Resp: COMMON NORMALS: normal respiratory effort, No retractions, No use of accessory muscles and clear to auscultation bilaterally AUSCULTATION: clear to auscultation bilaterally Cardio: COMMON NORMALS: regular rate, regular rhythm, S1 normal heart sound present, S2 normal heart sound present, No gallops present (Cardio), No clicks present (Cardio), No murmurs present (Cardio) and Peripheral pulses 2+ throughout RATE: regular rate RHYTHM: regular rhythm HEART SOUNDS: S1 normal heart sound present and S2 normal heart sound present PERIPHERAL PULSES: Peripheral pulses 2+ throughout GI: COMMON NORMALS: Normal to inspection, nondistended, normoactive bowel sounds present, Soft to palpation, non-tender and no masses PALPATION: Yes Soft to palpation : COMMON NORMALS: Yes no CVA tenderness BLADDER/KIDNEY EXAM: Yes no CVA tenderness Back/Pelvis: COMMON NORMALS: no CVA tenderness Extremity: COMMON NORMALS: normal to inspection Neuro: COMMON NORMALS: patient oriented x3 and moves all extremities SENSORIUM/ORIENTATION: Yes alert Skin: GENERAL SKIN EXAM: dry skin Course Vital Signs: Vital signs: Vital Signs Temperature 98.2 F 05/16/21 18:01 Pulse Rate 80 05/16/21 22:35 Respiratory Rate 16 05/16/21 22:35 Blood Pressure 119/78 05/16/21 22:35 Pulse Oximetry 100 05/16/21 22:35 MDM - OB/Uterine Contractions MDM Narrative: Medical decision making narrative: Patient is a G1 20-year-old female comes to the ED 5 weeks with some vaginal bleeding and cramping. Patient appears nontoxic and in no acute distress or pain. Exam is benign. White blood cell count 13.5 and the rest of CBC, UA and CMP were unremarkable. hCG quant 9. Ultrasound showed no intrauterine . Patient was diagnosed with miscarriage and told to follow-up with her doctor in the next 5 to 7 days for reevaluation. She can have hCG quant repeated at that time. Return to ED precautions given. Patient understood and agree with plan. Lab Data: Attestation: I reviewed the patient's lab results. Labs: Lab Results 05/16/21 05/16/21 05/16/21 19:17 19:17 19:17 WBC 13.5 10^3/uL H 10 ^3/uL (4.0-10.0) RBC 4.93 10^6/uL 10^6 /uL (4.1-5.3) Hgb 14.7 g/dL g/dL (11.5-15.3) Hct 43.6 % % (37.0-47.0) MCV 88.4 fl fl (81-99) MCH 29.8 pg pg (28.0-34.0) MCHC 33.7 g/dL g/dL (30.0-36.0) RDW 11.9 % L % (12.1-15.1) Plt Count 347 10^3/cmm 10^3 /cmm (130-400) MPV 11.0 fL H fL (7.4-10.4) Neut % (Auto) 62.2 % % Lymph % (Auto) 32.2 % % [place] % (Auto) 3.3 % % Eos % (Auto) 1.6 % % Baso % (Auto) 0.4 % % Neut # (Auto) 8.38 10^3/uL H 10 ^3/uL (1.8-7.7) Lymph # (Auto) 4.3 10^3/uL 10^3/ uL (0.8-4.8) [place] # (Auto) 0.4 10^3/uL 10^3/ uL (0.2-0.9) Eos # (Auto) 0.2 10^3/uL 10^3/ uL (0.0-0.8) Baso # (Auto) 0.1 10^3/uL 10^3/ uL (0.0-0.1) Nucleated RBC % (a uto) 0 % % Nucleated RBCs # 0.0 /100WBC /100W BC Sodium 135 mmol/L L mmol /L (136-145) Potassium 3.6 mmol/L mmol/L (3.5-5.1) Chloride 97 mmol/L L mmol/ L (98-107) Carbon Dioxide 23 mmol/L mmol/L (22-29) Anion Gap 18.6 (5-19) BUN 11 mg/dL mg/dL (6-20) Creatinine 0.6 mg/dL mg/dL (0.5-0.9) GFR Calculation 126.2 mL/min mL/m in (90-130) Glucose 79 mg/dL mg/dL (65-115) Calculated Osmolal ity 278 mOsm/kg L mOs m/kg (285-295) Calcium 9.5 mg/dL mg/dL (8.5-10.5) Total Bilirubin 0.2 mg/dL mg/dL (0.15-1.2) AST 15 U/L U/L (0-32) ALT 20 U/L U/L (0-33) Alkaline Phosphata se 83 IU/L IU/L (35-105) Total Protein 8.5 g/dL g/dL (6.6-8.7) Albumin 5.0 g/dL g/dL (3.5-5.2) Globulin 3.5 g/dL g/dL (1.3-4.6) Ser , [place] i-Qnt 9.83 mIU/mL mIU/m L Urine Color Urine Appearance Urine pH Ur Specific Gravit y Urine Protein Urine Glucose (UA) Urine Ketones Urine Blood Urine Nitrate Urine Bilirubin Urine Urobilinogen Ur Leukocyte Di ase Urine RBC Urine WBC Ur Squamous Epith Cells Amorphous Sediment Urine Bacteria Urine Mucus Blood Type O Positive Rho(D) Type Positive 05/16/21 19:40 WBC RBC Hgb Hct MCV MCH MCHC RDW Plt Count MPV Neut % (Auto) Lymph % (Auto) [place] % (Auto) Eos % (Auto) Baso % (Auto) Neut # (Auto) Lymph # (Auto) [place] # (Auto) Eos # (Auto) Baso # (Auto) Nucleated RBC % (a uto) Nucleated RBCs # Sodium Potassium Chloride Carbon Dioxide Anion Gap BUN Creatinine GFR Calculation Glucose Calculated Osmolal ity Calcium Total Bilirubin AST ALT Alkaline Phosphata se Total Protein Albumin Globulin Ser , [place] i-Qnt Urine Color Yellow (Yellow) Urine Appearance Sl hazy (CLEAR) Urine pH 5 (5-7) Ur Specific Gravit y 1.020 (1.005-1.030) Urine Protein Trace (Negative) Urine Glucose (UA) Norm (Normal) Urine Ketones 2+ H (Negative) Urine Blood 3+ H (Negative) Urine Nitrate Negative (Negative) Urine Bilirubin Neg (Negative) Urine Urobilinogen Norm mg/dL mg/dL (Negative) Ur Leukocyte Di ase Negative (Negative) Urine RBC >100 /hpf H /hpf (0-2) Urine WBC 0-4 /hpf H /hpf (0-5) Ur Squamous Epith Cells 5-10 /hpf H /hpf (0-5) Amorphous Sediment Not Reportable Urine Bacteria Trace /hpf /hpf (NONE) Urine Mucus 1+ /hpf /hpf Blood Type Rho(D) Type Imaging Data^: US OB: Attestation: I personally reviewed and interpreted this imaging study as follows: Radiologist's impression: Ultrasound OB-no intrauterine seen. Patient having miscarriage. [employer] [id number] ReportSigned Patient: Trice BallUnit #: [id number]: [id number]#:[id number]/Sex: 20 FADM Date: 05/16/21Loc: ERRoom/Bed:Attending Dr: Ordering Provider/Ordering MD: Aris Ng Date of Service: 05/16/21 Procedure(s): US OB lmt with transvaginal Accession Number(s): [id number] Report Number: [id number] PROCEDURE INFORMATION: Exam: US , Limited Exam date and time: 05/16/2021 7:35 PM Age: 20 years old Clinical indication: complicated by abdominal or pelvic pain; Lower; First trimester (<14 weeks 0 days); Gestational age or lmp: 5 w; ; Additional info: 5 weeks , bleeding and cramping TECHNIQUE: Imaging protocol: Real-time ultrasound of the maternal uterus with image documentation. Exam focused on the clinical indication. Total images: 42 COMPARISON: US Transvaginal [id number] 04/13/2019 10:40 AM FINDINGS: Gestation: Intrauterine gestation. MATERNAL: Uterus: Examination reveals an anteverted nongravid nulliparous appearing uterus. Dimensions are 6.3 cm x 2.9 cm x 3.2 cm. Endometrial stripe normal at under 4 mm. No endometrial fluid. Normal transition zone. No visible intrauterine gestation. Cervix: Cervix normal. Right adnexa: Right ovary appears sonographically normal. Right ovarian dimensions 3.6 cm x 2 cm x 2.3 cm. Positive arterial flow. No visible right adnexal mass or cystic lesion. Corpus luteal cyst right ovary maximum diameter 1.2 cm. Left adnexa: Left ovary appears sonographically normal. Left ovarian dimensions 3.2 cm x 2.7 cm x 2.8 cm. Positive arterial flow. No visible left adnexal mass or cystic lesion. Intraperitoneal space: No free fluid the cul-de-sac. US/US OB lmt with transvaginal IMPRESSION: No visible intrauterine gestation. Radiation Dose CTDIVOL = (mGy): DLP = (mGy-cm) Dictated By:Brenda Gudino By:Brenda Gudino Date/Time:05/16/212138DD/ 34 Discharge Plan Discharge Patient Disposition: Home Clinical Impression: Miscarriage Condition: Stable Prescriptions: No Action ondansetron 4 mg tablet,disintegrating 4 mg PO Q6H PRN (Reason: nausea and vomiting) Qty: 14 RF: 0 ciprofloxacin HCl [Cipro] 500 mg tablet 500 mg PO BID Qty: 14 RF: 0 pantoprazole 40 mg Tablet,Delayed Release (Dr/Ec) 40 mg PO DAILY Qty: 60 RF: 0 Discharge Orders: Discharge ED (Routine); Ordered 05/16/21 Ordered By: Aris Ng Referrals: SOFIACLINIC [Primary Care Provider] - Discharge Diet: Regular Discharge Activity: Increase activity as tolerated Patient Instructions: Miscarriage (ED) Activity Restrictions/Additional Instructions: Follow-up with medical provider as directed in about 5 to 7 days for reevaluation. Recheck hCG level as well at next appointment. Take [id number] Tylenol for any pain. Return to the ER or your medical provider if condition worsens (Fever, nausea/vomiting, severe abdominal pain or heavy bleeding). Please read and understand discharge instructions. Thank you for choosing [facility] for your healthcare needs today. Please realize this is an emergency room and that we are providing you with a medical screening exam and this may not be complete and all inclusive of all the testing and or work up that you may need to determine your ailment or severity of your illness. It is very important that you follow up as instructed or that you return to the Emergency Department should you have concerns or if your condition changes or worsens in any way. Coding Level of Care Code ED Broker for Chg Fwd Exam Comprehensive Documented by User: Jeffery Lin MD 05/19/21 03:51 HPI - General: Chief complaint: Vaginal Bleeding Stated complaint: 5 WKS , BLEEDING & CRAMPING Time Seen by Provider: 05/16/21 19:09 [facility] ED PFSH: Medical History Colitis Surgical History H/O neck surgery History of rhinoplasty Family History Other No significant family history Social History Smoking and tobacco status: current every day smoker cigarettes Packs smoked per day: 0.5 Alcohol intake: never Lives independently: Yes Household members: significant other Marital status: Single Current occupational status: employed Course Vital Signs: Vital signs: Vital Signs Temperature 98.2 F 05/16/21 18:01 Pulse Rate 80 05/16/21 22:35 Respiratory Rate 16 05/16/21 22:35 Blood Pressure 119/78 05/16/21 22:35 Pulse Oximetry 100 05/16/21 22:35 MDM - OB/Uterine Contractions MDM Narrative: Medical decision making narrative: I discussed this case with YONG Rosales. I reviewed documentation and imaging as well as laboratory studies. Jeffery Lin MD Emergency Medicine Lab Data: Labs: Lab Results 05/16/21 05/16/21 05/16/21 19:17 19:17 19:17 WBC 13.5 10^3/uL H 10 ^3/uL (4.0-10.0) RBC 4.93 10^6/uL 10^6 /uL (4.1-5.3) Hgb 14.7 g/dL g/dL (11.5-15.3) Hct 43.6 % % (37.0-47.0) MCV 88.4 fl fl (81-99) MCH 29.8 pg pg (28.0-34.0) MCHC 33.7 g/dL g/dL (30.0-36.0) RDW 11.9 % L % (12.1-15.1) Plt Count 347 10^3/cmm 10^3 /cmm (130-400) MPV 11.0 fL H fL (7.4-10.4) Neut % (Auto) 62.2 % % Lymph % (Auto) 32.2 % % [place] % (Auto) 3.3 % % Eos % (Auto) 1.6 % % Baso % (Auto) 0.4 % % Neut # (Auto) 8.38 10^3/uL H 10 ^3/uL (1.8-7.7) Lymph # (Auto) 4.3 10^3/uL 10^3/ uL (0.8-4.8) [place] # (Auto) 0.4 10^3/uL 10^3/ uL (0.2-0.9) Eos # (Auto) 0.2 10^3/uL 10^3/ uL (0.0-0.8) Baso # (Auto) 0.1 10^3/uL 10^3/ uL (0.0-0.1) Nucleated RBC % (a uto) 0 % % Nucleated RBCs # 0.0 /100WBC /100W BC Sodium 135 mmol/L L mmol /L (136-145) Potassium 3.6 mmol/L mmol/L (3.5-5.1) Chloride 97 mmol/L L mmol/ L (98-107) Carbon Dioxide 23 mmol/L mmol/L (22-29) Anion Gap 18.6 (5-19) BUN 11 mg/dL mg/dL (6-20) Creatinine 0.6 mg/dL mg/dL (0.5-0.9) GFR Calculation 126.2 mL/min mL/m in (90-130) Glucose 79 mg/dL mg/dL (65-115) Calculated Osmolal ity 278 mOsm/kg L mOs m/kg (285-295) Calcium 9.5 mg/dL mg/dL (8.5-10.5) Total Bilirubin 0.2 mg/dL mg/dL (0.15-1.2) AST 15 U/L U/L (0-32) ALT 20 U/L U/L (0-33) Alkaline Phosphata se 83 IU/L IU/L (35-105) Total Protein 8.5 g/dL g/dL (6.6-8.7) Albumin 5.0 g/dL g/dL (3.5-5.2) Globulin 3.5 g/dL g/dL (1.3-4.6) Ser , [place] i-Qnt 9.83 mIU/mL mIU/m L Urine Color Urine Appearance Urine pH Ur Specific Gravit y Urine Protein Urine Glucose (UA) Urine Ketones Urine Blood Urine Nitrate Urine Bilirubin Urine Urobilinogen Ur Leukocyte Di ase Urine RBC Urine WBC Ur Squamous Epith Cells Amorphous Sediment Urine Bacteria Urine Mucus Blood Type O Positive Rho(D) Type Positive 05/16/21 19:40 WBC RBC Hgb Hct MCV MCH MCHC RDW Plt Count MPV Neut % (Auto) Lymph % (Auto) [place] % (Auto) Eos % (Auto) Baso % (Auto) Neut # (Auto) Lymph # (Auto) [place] # (Auto) Eos # (Auto) Baso # (Auto) Nucleated RBC % (a uto) Nucleated RBCs # Sodium Potassium Chloride Carbon Dioxide Anion Gap BUN Creatinine GFR Calculation Glucose Calculated Osmolal ity Calcium Total Bilirubin AST ALT Alkaline Phosphata se Total Protein Albumin Globulin Ser , [place] i-Qnt Urine Color Yellow (Yellow) Urine Appearance Sl hazy (CLEAR) Urine pH 5 (5-7) Ur Specific Gravit y 1.020 (1.005-1.030) Urine Protein Trace (Negative) Urine Glucose (UA) Norm (Normal) Urine Ketones 2+ H (Negative) Urine Blood 3+ H (Negative) Urine Nitrate Negative (Negative) Urine Bilirubin Neg (Negative) Urine Urobilinogen Norm mg/dL mg/dL (Negative) Ur Leukocyte Di ase Negative (Negative) Urine RBC >100 /hpf H /hpf (0-2) Urine WBC 0-4 /hpf H /hpf (0-5) Ur Squamous Epith Cells 5-10 /hpf H /hpf (0-5) Amorphous Sediment Not Reportable Urine Bacteria Trace /hpf /hpf (NONE) Urine Mucus 1+ /hpf /hpf Blood Type Rho(D) Type Discharge Plan Discharge Patient Disposition: Home Clinical Impression: Miscarriage Condition: Stable Prescriptions: No Action ondansetron 4 mg tablet,disintegrating 4 mg PO Q6H PRN (Reason: nausea and vomiting) Qty: 14 RF: 0 ciprofloxacin HCl [Cipro] 500 mg tablet 500 mg PO BID Qty: 14 RF: 0 pantoprazole 40 mg Tablet,Delayed Release (Dr/Ec) 40 mg PO DAILY Qty: 60 RF: 0 Discharge Orders: Discharge ED (Routine); Ordered 05/16/21 Ordered By: Aris Ng Referrals: SOFIACLINIC [Primary Care Provider] - Discharge Diet: Regular Discharge Activity: Increase activity as tolerated Patient Instructions: Miscarriage (ED) Activity Restrictions/Additional Instructions: Follow-up with medical provider as directed in about 5 to 7 days for reevaluation. Recheck hCG level as well at next appointment. Take [id number] Tylenol for any pain. Return to the ER or your medical provider if condition worsens (Fever, nausea/vomiting, severe abdominal pain or heavy bleeding). Please read and understand discharge instructions. Thank you for choosing [facility] for your healthcare needs today. Please realize this is an emergency room and that we are providing you with a medical screening exam and this may not be complete and all inclusive of all the testing and or work up that you may need to determine your ailment or severity of your illness. It is very important that you follow up as instructed or that you return to the Emergency Department should you have concerns or if your condition changes or worsens in any way. Coding Level of Care Code ED Broker for Dipika Bentley Exam Comprehensive
--- NOTE | 2021-05-16 19:19 | PC.NURSE ---
physician in room at this time
[2021-05-16 19:20] VITALS: BP 122/79; PULSE 91; RESP 19; O2SAT 100
[2021-05-16 19:30] VITALS: O2SAT 100
--- NOTE | 2021-05-16 19:35 | USR_ITS ---
PROCEDURE INFORMATION: Exam: US , Limited Exam date and time: 05/16/2021 7:35 PM Age: 20 years old Clinical indication: complicated by abdominal or pelvic pain; Lower; First trimester (<14 weeks 0 days); Gestational age or lmp: 5 w; ; Additional info: 5 weeks , bleeding and cramping TECHNIQUE: Imaging protocol: Real-time ultrasound of the maternal uterus with image documentation. Exam focused on the clinical indication. Total images: 42 COMPARISON: US Transvaginal [id number] 04/13/2019 10:40 AM FINDINGS: Gestation: Intrauterine gestation. MATERNAL: Uterus: Examination reveals an anteverted nongravid nulliparous appearing uterus. Dimensions are 6.3 cm x 2.9 cm x 3.2 cm. Endometrial stripe normal at under 4 mm. No endometrial fluid. Normal transition zone. No visible intrauterine gestation. Cervix: Cervix normal. Right adnexa: Right ovary appears sonographically normal. Right ovarian dimensions 3.6 cm x 2 cm x 2.3 cm. Positive arterial flow. No visible right adnexal mass or cystic lesion. Corpus luteal cyst right ovary maximum diameter 1.2 cm. Left adnexa: Left ovary appears sonographically normal. Left ovarian dimensions 3.2 cm x 2.7 cm x 2.8 cm. Positive arterial flow. No visible left adnexal mass or cystic lesion. Intraperitoneal space: No free fluid the cul-de-sac. US/US OB lmt with transvaginal IMPRESSION: No visible intrauterine gestation. Radiation Dose CTDIVOL = (mGy): DLP = (mGy-cm)
[2021-05-16 19:44] LABS: Basophils # 0.1 10^3/uL (0.0-0.1); Basophils % 0.4 %; Eosinophils # 0.2 10^3/uL (0.0-0.8); Eosinophils % 1.6 %; Hematocrit 43.6 % (37.0-47.0); Hemoglobin 14.7 g/dL (11.5-15.3); Lymphocytes # 4.3 10^3/uL (0.8-4.8); Lymphocytes % 32.2 %; Mean Corpuscular HGB Conc 33.7 g/dL (30.0-36.0); Mean Corpuscular Hemoglobin 29.8 pg (28.0-34.0); Mean Corpuscular Volume 88.4 fl (81-99); Monocytes # 0.4 10^3/uL (0.2-0.9); Monocytes % 3.3 %; Neutrophils # 8.38 10^3/uL (1.8-7.7); Neutrophils % 62.2 %; Nucleated Red Blood Cells % 0 %; Platelet Count 347 10^3/cmm (130-400); Red Blood Count 4.93 10^6/uL (4.1-5.3); Red Cell Distribution Width 11.9 % (12.1-15.1); White Blood Count 13.5 10^3/uL (4.0-10.0)
[2021-05-16 20:11] LABS: HCG Quantitative 9.83 mIU/mL
[2021-05-16 20:23] LABS: Alanine Aminotransferase 20 U/L (0-33); Alkaline Phosphatase 83 IU/L (35-105); Anion Gap 18.6 (5-19); Aspartate Amino Transferase 15 U/L (0-32); Blood Urea Nitrogen 11 mg/dL (6-20); Calcium 9.5 mg/dL (8.5-10.5); Carbon Dioxide 23 mmol/L (22-29); Chloride 97 mmol/L (98-107); Globulin 3.5 g/dL (1.3-4.6); Glomerular Filtration Rate 126.2 mL/min (90-130); Glucose 79 mg/dL (65-115); Osmolality Calculated 278 mOsm/kg (285-295); Potassium 3.6 mmol/L (3.5-5.1); Sodium 135 mmol/L (136-145); Total Bilirubin 0.2 mg/dL (0.15-1.2); Total Protein 8.5 g/dL (6.6-8.7)
[2021-05-16 20:27] LABS: Add Urine Culture? Yes; Add Urine Microscopic? YES; Bacteria Urine TRACE /hpf; Bilirubin Urine Neg (Negative); Blood Urine 3+ (Negative); Glucose Urine UA Norm (Normal); Ketones Urine 2+ (Negative); Leukocyte Esterase Urine Negative (Negative); Mucus Urine 1+ /hpf; Nitrate Urine Negative (Negative); Protein Urine Trace (Negative); RBC Urine >100 /hpf (0-2); Urine Appearance SL Hazy (CLEAR); Urine Color Yellow (Yellow); Urobilinogen Urine Norm (Negative); WBC Urine 0-4 /hpf (0-5); pH Urine 5 (5-7)
--- NOTE | 2021-05-16 20:30 | PC.NURSE ---
Assisted as hvac technician to trans vag US. Pt tolerated well.
[2021-05-16 22:35] VITALS: BP 119/78; PULSE 80; RESP 16; O2SAT 100
== END 2021-05-16 22:39 | disposition home or self-care (01) ==
PROVIDERS: Physician Assistant; Emergency Provider Physician Assistant
DX: O03.9 Complete or unspecified spontaneous abortion without complication (principal); O99.331 Smoking (tobacco) complicating pregnancy, first trimester; F17.210 Nicotine dependence, cigarettes, uncomplicated; Z3A.01 Less than 8 weeks gestation of pregnancy
CPT/HCPCS: 76815; 76817; 80053; 81001; 84702; 85025; 86900; 87086; 99282